=== PATIENT | female | born 1945 | race Caucasian/White ===

== ENCOUNTER 2020-05-17 07:34 | Day surgery (SDC) | payer MEDICARE, SELFPAY ==
[2020-05-12 10:01] VITALS: BMI 37.4
--- NOTE | 2020-05-13 07:55 | MHC.SHP ---
Pre-Procedural Eval Section A The patient is an INPATIENT: No The History & Physical has been completed within 30 days and I have reviewed it.: Yes Section B Chief Complaint: Cataract Right Eye Allergies: Allergies Allergy/AdvReac Type Severity Reaction Status Date / Time Sulfa (Sulfonamide Allergy Mild Rash Verified 05/12/20 10:11 Antibiotics) [Sulfa (Sulfonamides)] verapamil [From Verelan] Allergy Swelling Verified 05/12/20 10:11 VIJAY Inhibitors AdvReac Cough Verified 05/12/20 10:11 Plan Diagnosis/Plan: Unchanged Patient has been examined and remains a candidate for the planned procedure
--- NOTE | 2020-05-14 09:22 | P.CONAN_ITS ---
Documented by User: Latha James 05/14/20 09:22 HPI - Anesthesia Eval Consult details Narrative: 75yo F for cataract PCP cleared [facility] Past Medical History Medical History Asthma COPD (chronic obstructive pulmonary disease) GERD (gastroesophageal reflux disease) HTN (hypertension) Hx of thyroglossal duct cyst Surgical History Surgical History H/O colonoscopy Social History Social History Smoking Status: Former smoker Smoked in Last 30 Days: No Smoking Quit Date: age 35 Use of substances other than those prescribed or required for medical reasons: No Have you been hit, kicked, punched, or otherwise hurt by someone within the past year? If so, by whom?: No Advance Directives Information Provided: No Recently lost weight without trying: No Meds Allergies Allergy/AdvReac Type Severity Reaction Status Date / Time Sulfa (Sulfonamide Allergy Mild Rash Verified 05/12/20 10:11 Antibiotics) [Sulfa (Sulfonamides)] verapamil [From Verelan] Allergy Swelling Verified 05/12/20 10:11 VIJAY Inhibitors AdvReac Cough Verified 05/12/20 10:11 Home Medications Medication Instructions Recorded Confirmed Type albuterol sulfate [Ventolin HFA] 2 puff INHALATION Q4-6H PRN 05/12/20 05/12/20 History fluticasone propion-salmeterol 1 inh INHALATION BID 05/12/20 05/12/20 History [Advair Diskus] fluticasone propionate [Flonase] 1 spray INTRANASAL BID 05/12/20 05/12/20 History loratadine 10 mg PO DAILY 05/12/20 05/12/20 History valsartan-hydrochlorothiazide 1 tab PO DAILY 05/12/20 05/12/20 History Exam Exam Date and Time: May 14, 2020921 Height,Weight and Vital Signs: Height 5 ft 4 in Weight 98.883 kg Assessment and Plan Assessment Anesthesia Assessment: Chart Reviewed Documented by User: Dominguez Solomon 05/17/20 08:42 PMFSH Past Medical History Medical History Asthma COPD (chronic obstructive pulmonary disease) GERD (gastroesophageal reflux disease) HTN (hypertension) Hx of thyroglossal duct cyst Surgical History Surgical History H/O colonoscopy Social History Social History Smoking Status: Former smoker Smoked in Last 30 Days: No Smoking Quit Date: age 35 Use of substances other than those prescribed or required for medical reasons: No Have you been hit, kicked, punched, or otherwise hurt by someone within the past year? If so, by whom?: No Advance Directives Information Provided: No Recently lost weight without trying: No Meds Allergies Allergy/AdvReac Type Severity Reaction Status Date / Time Sulfa (Sulfonamide Allergy Mild Rash Verified 05/12/20 10:11 Antibiotics) [Sulfa (Sulfonamides)] verapamil [From Verelan] Allergy Swelling Verified 05/12/20 10:11 VIJAY Inhibitors AdvReac Cough Verified 05/12/20 10:11 Home Medications Medication Instructions Recorded Confirmed Type albuterol sulfate [Ventolin HFA] 2 puff INHALATION Q4-6H PRN 05/12/20 05/12/20 History fluticasone propion-salmeterol 1 inh INHALATION BID 05/12/20 05/12/20 History [Advair Diskus] fluticasone propionate [Flonase] 1 spray INTRANASAL BID 05/12/20 05/12/20 History loratadine 10 mg PO DAILY 05/12/20 05/12/20 History valsartan-hydrochlorothiazide 1 tab PO DAILY 05/12/20 05/12/20 History Exam Airway Mallampati Class: II TM Dist: >3cm Neck ROM: Full Loose/Missing/Broken Teeth: No Heart: [id number] Lungs: cta b/l Assessment and Plan Assessment Anesthesia Assessment: Anesthesia Plan Discussed, PAT Visit and Chart Reviewed Final Anesthetic Review NPO: Yes ASA Class: III Final Preanesthetic Review: No Changes in Pt Med Stat, Meds/Allgs Chart Reviewed, Consent Obtained/Reviewed and Anes Risks/Benef Reviewed Patient Risk: Low Procedure Risk: Low Assessment/Block/Sedation in SS: Assess/Block/Sedation-SS Anesthetic Plan Anesthetic Plan: MAC: Disposition: Standard PACU
[2020-05-17 08:47] VITALS: BP 141/75; PULSE 61; RESP 16; TEMP 36.7; O2SAT 98
[2020-05-17] MEDS: Tetracaine HCl/PF 0.5% Oph Sol 4 ML DROPS 1 DROP EYE-RIGHT (08:53)
[2020-05-17] MEDS: Lactated Ringers 500 ML 50 ML IV (08:57)
[2020-05-17] MEDS: Tropicamide 1 % Ophth Sol 3 ML BTL 1 DROP EYE-RIGHT ×3 (08:58→09:08)
--- NOTE | 2020-05-17 09:44 | HO.PNOPHT ---
Ophthalmology Procedure Procedure Ophthalmology Viscoelastic: Kelly Murillo Dual Pack Pro Ophthalmology Lenses: TECNIS [id number] (23) Procedure Notes: PREOPERATIVE DIAGNOSIS: Decreased visual acuity right eye secondary to cataract POSTOPERATIVE DIAGNOSIS: Same PROCEDURE: Right cataract extraction with intraocular lens insertion SURGEON: Tommy Shaikh M.D. ANESTHESIA: Topical/MAC ESTIMATED BLOOD LOSS: None COMPLICATIONS: None After obtaining informed consent, the patient was brought to the operating room suite and placed in the supine position. After adequate sedation per anesthesia, topical drops of Tetracaine were given to the right eye. The eye was then prepped and draped in the usual sterile fashion. The operating room microscope was then positioned over the operative eye and a lid speculum placed. A paracentesis was created. Viscoelastic was then instilled into the anterior chamber. A three plane incision was then created temporally, utilizing a 2.85 mm keratome. Capsulotomy forceps were then utilized to create a circular tear capsulotomy. Hydrodissection and hydrodelineation were carried out until adequate mobilization of the nucleus occurred. Phacoemulsification was then utilized to remove the dense central nucleus followed by removal of the cortical material utilizing the automated aspiration irrigation unit. Viscoelastic was instilled into the posterior capsular bag followed by placement of a posterior chamber intraocular lens without difficulty. The residual Viscoelastic was then removed utilizing the automated IA machine. The wound was checked and found to be watertight. The patient tolerated the procedure well and the lid speculum was removed. Intracameral injection of Vigamox 0.1 mL followed by a subtenon injection of Kenalog-40 0.2 mL were administered. The patient will be seen in the a.m.
== END 2020-05-17 11:00 | disposition home or self-care (01) ==
PROVIDERS: PCP Internal Medicine; Visit Provider Ophthalmology
PROC: (CPT 66985; principal; 2020-05-17 09:20)
DX: H25.11 Age-related nuclear cataract, right eye (principal); H52.4 Presbyopia; H40.213 Acute angle-closure glaucoma, bilateral; I10 Essential (primary) hypertension; J44.9 Chronic obstructive pulmonary disease, unspecified; J40 Bronchitis, not specified as acute or chronic; Z79.51 Long term (current) use of inhaled steroids; Z79.899 Other long term (current) drug therapy; Z87.891 Personal history of nicotine dependence
CPT/HCPCS: 66984; J2250; J3010; J3300; V2632

== ENCOUNTER 2020-05-31 07:46 | Day surgery (SDC) | payer MEDICARE, SELFPAY ==
--- NOTE | 2020-05-27 08:26 | MHC.SHP ---
Pre-Procedural Eval Section A The patient is an INPATIENT: No The History & Physical has been completed within 30 days and I have reviewed it.: Yes Section B Chief Complaint: Cataract Left eye Allergies: Allergies Allergy/AdvReac Type Severity Reaction Status Date / Time Sulfa (Sulfonamide Allergy Mild Rash Verified 05/12/20 10:11 Antibiotics) [Sulfa (Sulfonamides)] verapamil [From Verelan] Allergy Swelling Verified 05/12/20 10:11 VIJAY Inhibitors AdvReac Cough Verified 05/12/20 10:11 Plan Diagnosis/Plan: Unchanged Patient has been examined and remains a candidate for the planned procedure
--- NOTE | 2020-05-28 08:57 | HO.ANESPROP2 ---
Documented by User: Latha James 05/28/20 14:05 HPI - Anesthesia Eval Consult details Narrative: 75yo F for cataract PCP cleared 1st eye 05/17/20: Fent 25, Midaz 1 [facility] Past Medical History Medical History Asthma COPD (chronic obstructive pulmonary disease) GERD (gastroesophageal reflux disease) HTN (hypertension) Hx of thyroglossal duct cyst Surgical History Surgical History H/O colonoscopy Social History Social History Smoking Status: Former smoker Advance Directives: No Meds Allergies Allergy/AdvReac Type Severity Reaction Status Date / Time Sulfa (Sulfonamide Allergy Mild Rash Verified 05/12/20 10:11 Antibiotics) [Sulfa (Sulfonamides)] verapamil [From Verelan] Allergy Swelling Verified 05/12/20 10:11 VIJAY Inhibitors AdvReac Cough Verified 05/12/20 10:11 Home Medications Medication Instructions Recorded Confirmed Type albuterol sulfate [Ventolin HFA] 2 puff INHALATION Q4-6H PRN 05/12/20 05/12/20 History fluticasone propion-salmeterol 1 inh INHALATION BID 05/12/20 05/12/20 History [Advair Diskus] fluticasone propionate [Flonase] 1 spray INTRANASAL BID 05/12/20 05/12/20 History loratadine 10 mg PO DAILY 05/12/20 05/12/20 History valsartan-hydrochlorothiazide 1 tab PO DAILY 05/12/20 05/12/20 History Exam Exam Date and Time: May 28, 2020 0857 Assessment and Plan Assessment Anesthesia Assessment: Chart Reviewed Documented by User: Jyoti Sullivan 05/31/20 09:29 [facility] Past Medical History Medical History Asthma COPD (chronic obstructive pulmonary disease) GERD (gastroesophageal reflux disease) HTN (hypertension) Hx of thyroglossal duct cyst Surgical History Surgical History H/O colonoscopy Social History Social History Smoking Status: Former smoker Advance Directives: No Meds Allergies Allergy/AdvReac Type Severity Reaction Status Date / Time Sulfa (Sulfonamide Allergy Mild Rash Verified 05/12/20 10:11 Antibiotics) [Sulfa (Sulfonamides)] verapamil [From Verelan] Allergy Swelling Verified 05/12/20 10:11 VIJAY Inhibitors AdvReac Cough Verified 05/12/20 10:11 Home Medications Medication Instructions Recorded Confirmed Type albuterol sulfate [Ventolin HFA] 2 puff INHALATION Q4-6H PRN 05/12/20 05/12/20 History fluticasone propion-salmeterol 1 inh INHALATION BID 05/12/20 05/12/20 History [Advair Diskus] fluticasone propionate [Flonase] 1 spray INTRANASAL BID 05/12/20 05/12/20 History loratadine 10 mg PO DAILY 05/12/20 05/12/20 History valsartan-hydrochlorothiazide 1 tab PO DAILY 05/12/20 05/12/20 History Exam Airway Mallampati Class: I (Caps lateral) TM Dist: >3cm Neck ROM: Full Heart: RRR Lungs: CztABL Assessment and Plan Assessment Anesthesia Assessment: Anesthesia Plan Discussed Final Anesthetic Review NPO: Yes ASA Class: II Final Preanesthetic Review: No Changes in Pt Med Stat and Consent Obtained/Reviewed Patient Risk: Low Procedure Risk: Low Anesthetic Plan Anesthetic Plan: MAC: Disposition: Standard PACU
[2020-05-31 09:18] VITALS: BP 151/73; PULSE 70; RESP 16; TEMP 36.3; O2SAT 100; BMI 35.0
[2020-05-31] MEDS: Lactated Ringers 500 ML 50 ML IV (09:34)
[2020-05-31] MEDS: Tetracaine HCl/PF 0.5% Oph Sol 4 ML DROPS 1 DROP EYE-LEFT (09:34)
[2020-05-31] MEDS: Tropicamide 1 % Ophth Sol 3 ML BTL 1 DROP EYE-LEFT ×3 (09:36→09:41)
--- NOTE | 2020-05-31 10:16 | HO.PNOPHT ---
Ophthalmology Procedure Procedure Ophthalmology Viscoelastic: Kelly Philipt Dual Pack Pro Ophthalmology Lenses: TECNIS [id number] (23) Procedure Notes: PREOPERATIVE DIAGNOSIS: Decreased visual acuity left eye secondary to cataract POSTOPERATIVE DIAGNOSIS: Same PROCEDURE: Left cataract extraction with intraocular lens insertion SURGEON: Tommy Shaikh M.D. ANESTHESIA: Topical/MAC ESTIMATED BLOOD LOSS: None COMPLICATIONS: None After obtaining informed consent, the patient was brought to the operation room suite and placed in the supine position. After adequate sedation per anesthesia, topical drops of Tetracaine were given to the left eye. The eye was then prepped and draped in the usual sterile fashion. The operating room microscope was then positioned over the operative eye and a lid speculum placed. A paracentesis was created. Viscoelastic was then instilled into the anterior chamber. A three plane incision was then created temporally, utilizing a 2.85 mm keratome. Capsulotomy forceps were then utilized to create a circular tear capsulotomy. Hydrodissection and hydrodelineation were carried out until adequate mobilization of the nucleus occurred. Phacoemulsification was then utilized to remove the dense central nucleus followed by removal of the cortical material utilizing the automated aspiration irrigation unit. Viscoat elastic was instilled into the posterior capsular bag followed by placement of a posterior chamber intraocular lens without difficulty. The residual Viscoat elastic was then removed utilizing the automated IA machine. The wound was check and found to be watertight. The patient tolerated the procedure well and the lid speculum was removed. Intracameral injection of Vigamox 0.1 mL followed by a subtenon injection of Kenalog-40 0.2 mL were administered. The patient will be seen in the a.m.
[2020-05-31 10:21] VITALS: BP 142/59; PULSE 50; RESP 16; TEMP 36.2; O2SAT 100
== END 2020-05-31 11:00 | disposition home or self-care (01) ==
PROVIDERS: PCP Internal Medicine; Visit Provider Ophthalmology
PROC: (CPT 66985; principal; 2020-05-31 10:10)
DX: H25.12 Age-related nuclear cataract, left eye (principal); H54.7 Unspecified visual loss; I10 Essential (primary) hypertension; J44.9 Chronic obstructive pulmonary disease, unspecified; Z79.51 Long term (current) use of inhaled steroids; Z79.899 Other long term (current) drug therapy; Z88.2 Allergy status to sulfonamides; Z88.8 Allergy status to other drugs, medicaments and biological substances; Z87.891 Personal history of nicotine dependence
CPT/HCPCS: 66984; J2250; J3010; J3300; V2632

== ENCOUNTER 2020-07-02 09:48 | Outpatient (REF) | payer MEDICARE, SELFPAY ==
[2020-07-02 14:42] LABS: Alanine Aminotransferase 14 U/L (0-31); Albumin Level 3.8 g/dL (3.5-5.0); Alkaline Phosphatase 70 U/L (39-117); Anion Gap 13 (12-20); Aspartate Amino Transferase 15 U/L (5-31); Bilirubin Total 0.7 mg/dL (0.0-1.0); Blood Urea Nitrogen 18 mg/dL (9-16); Calcium 9.2 mg/dL (8.4-10.2); Carbon Dioxide 30 mmol/L (22-29); Chloride 102 mmol/L (96-108); Cholesterol 220 mg/dL; Estimated Glomerular Filt Rate > 60; Glucose Fasting 88 mg/dL (60-99); HDL Cholesterol 96 mg/dL; LDL Cholesterol Calculated 112 mg/dl; Sodium 141 mmol/L (135-145); Total Protein 6.5 g/dL (6.5-8.0); Triglycerides 61 mg/dL
[2020-07-02 14:45] LABS: Thyroid Stimulating Hormone 1.43 uIU/mL (0.32-4.0)
== END 2020-07-02 09:49 | disposition home or self-care (01) ==
LOC: HO.10HDL 09:48
PROVIDERS: Visit Provider Internal Medicine
DX: H26.8 Other specified cataract (principal); I10 Essential (primary) hypertension; J44.1 Chronic obstructive pulmonary disease with (acute) exacerbation
CPT/HCPCS: 80053; 80061; 84443

== ENCOUNTER 2020-09-27 11:57 | Outpatient (REF) | payer MEDICARE, SELFPAY ==
--- NOTE | ~2020-09-27 | MM_ITS ---
EXAMINATION: MM SCREENING DIGITAL BREAST TOMOSYNTHESIS, BILATERAL CLINICAL INFORMATION: Screening. Asymptomatic. The lifetime risk of breast cancer based on the Tyrer-Cuzick Model is 4%. COMPARISON: Mammography: 09/22/2019, 08/08/2018, 11/23/2016 TECHNIQUE: Digital breast tomosynthesis is performed in both the craniocaudal and mediolateral oblique views along with computer-aided detection (CAD). Synthesized 2D images are generated from the tomosynthesis. FINDINGS: There are scattered areas of fibroglandular density (ACR BI-RADS breast composition Category b). There are no significant masses, abnormal calcifications, or other abnormalities. Parenchymal pattern is similar to prior studies. The axilla and skin contours are unremarkable. MM/MM tomosynthesis screening BI IMPRESSION: No mammographic evidence of malignancy. ASSESSMENT: BI-RADS 1: Negative RECOMMENDATION: Routine annual mammography screening. This patient's information was entered into a reminder system with a target due date for their next mammogram.
== END 2020-09-27 11:58 | disposition home or self-care (01) ==
LOC: HO.MAMMO 11:57
PROVIDERS: PCP Internal Medicine; Visit Provider Internal Medicine
DX: Z12.31 Encounter for screening mammogram for malignant neoplasm of breast (principal)
CPT/HCPCS: 77063; 77067

== ENCOUNTER 2020-10-22 09:24 | Day surgery (SDC) | payer MEDICARE, SELFPAY ==
[2020-10-15 15:03] VITALS: BMI 37.8
--- NOTE | 2020-10-21 07:54 | HO.ANESPROP2 ---
Documented by User: Latha James 10/21/20 07:55 HPI - Anesthesia Eval Consult details Narrative: 75yo F for Colonoscopy PMFSH Past Medical History Medical History Asthma COPD (chronic obstructive pulmonary disease) COVID-19 vaccine administered GERD (gastroesophageal reflux disease) HTN (hypertension) Hx of thyroglossal duct cyst Surgical History Surgical History H/O colonoscopy Hx of cataract extraction Social History Social History Are you a primary career services assistant to a significant other at home: No Do you presently have visiting nurse or other home services: No Smoking Status: Former smoker Smoking Quit Date: age 35 Use of substances other than those prescribed or required for medical reasons: No Have you been hit, kicked, punched, or otherwise hurt by someone within the past year? If so, by whom?: No Advance Directives Information Provided: No Recently lost weight without trying: No Meds Allergies Allergy/AdvReac Type Severity Reaction Status Date / Time Sulfa (Sulfonamide Allergy Intermediate Rash Verified 10/15/20 14:51 Antibiotics) [Sulfa (Sulfonamides)] verapamil [From Verelan] Allergy Intermediate Swelling Verified 10/15/20 14:51 VIJAY Inhibitors AdvReac Intermediate Cough Verified 10/15/20 14:51 Home Medications Medication Instructions Recorded Confirmed Last Taken Type albuterol sulfate [Ventolin HFA] 2 puff INHALATION Q4-6H PRN 05/12/20 10/15/20 Unknown History fluticasone propion-salmeterol 1 inh INHALATION BID 05/12/20 10/15/20 10/22/20 History [Advair Diskus] fluticasone propionate [Flonase] 1 spray INTRANASAL BID 05/12/20 10/15/20 Unknown History loratadine 10 mg PO DAILY 05/12/20 10/15/20 Unknown History valsartan-hydrochlorothiazide 1 tab PO DAILY 05/12/20 10/15/20 10/22/20 History montelukast 1 tab PO BEDTIME 10/15/20 10/15/20 10/22/20 History omeprazole 1 cap PO DAILY 10/15/20 10/15/20 10/22/20 History Exam Exam Date and Time: October 21, 2020 0754 Height,Weight and Vital Signs: Height 5 ft 4 in Weight 99.79 kg Assessment and Plan Assessment Anesthesia Assessment: Chart Reviewed Documented by User: Rhianna Sams 10/22/20 10:41 PMFSH Past Medical History Medical History Asthma COPD (chronic obstructive pulmonary disease) COVID-19 vaccine administered GERD (gastroesophageal reflux disease) HTN (hypertension) Hx of thyroglossal duct cyst Family History Family history of problems with anesthesia: No Surgical History Surgical History H/O colonoscopy Hx of cataract extraction History of Problems with Anesthesia: No Social History Social History Are you a primary career services assistant to a significant other at home: No Do you presently have visiting nurse or other home services: No Smoking Status: Former smoker Smoking Quit Date: age 35 Use of substances other than those prescribed or required for medical reasons: No Have you been hit, kicked, punched, or otherwise hurt by someone within the past year? If so, by whom?: No Advance Directives Information Provided: No Recently lost weight without trying: No Meds Allergies Allergy/AdvReac Type Severity Reaction Status Date / Time Sulfa (Sulfonamide Allergy Intermediate Rash Verified 10/15/20 14:51 Antibiotics) [Sulfa (Sulfonamides)] verapamil [From Verelan] Allergy Intermediate Swelling Verified 10/15/20 14:51 VIJAY Inhibitors AdvReac Intermediate Cough Verified 10/15/20 14:51 Home Medications Medication Instructions Recorded Confirmed Last Taken Type albuterol sulfate [Ventolin HFA] 2 puff INHALATION Q4-6H PRN 05/12/20 10/15/20 Unknown History fluticasone propion-salmeterol 1 inh INHALATION BID 05/12/20 10/15/2021 History [Advair Diskus] fluticasone propionate [Flonase] 1 spray INTRANASAL BID 05/12/20 10/15/20 Unknown History loratadine 10 mg PO DAILY 05/12/20 10/15/20 Unknown History valsartan-hydrochlorothiazide 1 tab PO DAILY 05/12/20 10/15/20 10/22/20 History montelukast 1 tab PO BEDTIME 10/15/20 10/15/20 10/22/20 History omeprazole 1 cap PO DAILY 10/15/20 10/15/20 10/22/20 History Exam Height,Weight and Vital Signs: Vital Signs Temp Resp BP Pulse Ox 10/22/20 10:05 98.1 F 20 167/70 H 97 Pertinent Lab Results Pertinent Lab Results: Airway Mallampati Class: II TM Dist: >3cm Neck ROM: Full Heart: RRR Lungs: CTAB Assessment and Plan Assessment Anesthesia Assessment: Anesthesia Plan Discussed and Chart Reviewed Final Anesthetic Review NPO: Yes ASA Class: II Final Preanesthetic Review: No Changes in Pt Med Stat, Meds/Allgs Chart Reviewed, Consent Obtained/Reviewed and Anes Risks/Benef Reviewed Patient Risk: Low Procedure Risk: Low Assessment/Block/Sedation in SS: Assess/Block/Sedation-SS Anesthetic Plan Anesthetic Plan: MAC: Disposition: Standard PACU
[2020-10-22 10:05] VITALS: BP 167/70; RESP 20; TEMP 36.7; O2SAT 97
[2020-10-22] MEDS: Lactated Ringers 1,000 ML 100 ML IVCONT (10:30)
[2020-10-22 11:15] VITALS: BP 116/84; PULSE 66; RESP 20; TEMP 36.9; O2SAT 100
--- NOTE | 2020-10-22 11:20 | PM.OP ---
Brief Operative Note Date of Service: 10/22/20 Pre-op diagnosis: Screening Post-op diagnosis: other (Diverticulosis, Internal hemorrhoids) Procedure: Colonoscopy to the cecum and TI Surgeon: Richar Hanson Anesthesia: MAC Estimated blood loss (mL): 0 Pathology: none sent Condition: stable Disposition: PACU
[2020-10-22 11:30] VITALS: BP 162/58; PULSE 57; RESP 20; TEMP 37; O2SAT 98
--- NOTE | 2020-10-22 11:57 | OP_ITS ---
SURGEON: Richar Hanson MD INDICATIONS: The patient presents for evaluation of colorectal cancer screening. Full consent has been obtained from her for this, including risks of bleeding and perforation. PREOPERATIVE DIAGNOSIS: Colorectal cancer screening. POSTOPERATIVE DIAGNOSIS: PROCEDURE PERFORMED: Colonoscopy to cecum and terminal ileum. ESTIMATED BLOOD LOSS: COMPLICATIONS: ANESTHESIA: Monitored anesthesia care. ASSISTANTS: SPECIMENS: POSTOPERATIVE DIAGNOSES: Colorectal cancer screening, sigmoid diverticulosis, and small internal hemorrhoids. DESCRIPTION OF PROCEDURE: The patient was placed in the left lateral decubitus position. The digital rectal exam revealed no abnormalities. The Olympus video pediatric colonoscope was entered into the rectum and advanced easily to the cecum. Once in the cecum, I did identify normal-appearing cecal pouch with appendiceal orifice and a normal-appearing ileocecal valve. The terminal ileum was cannulated and appeared normal. Scope was withdrawn back in the colon. The entire cecum and ileocecal valve appeared normal. The scope was slowly withdrawn assessing all mucosal surfaces carefully. Preparation was excellent. I did not visualize any sign of polyps, colitis, nor angiodysplasia. There was a mild amount of sigmoid diverticulosis. In the rectum, scope was retroflexed visualizing small internal hemorrhoids, but no other pathology. The rectal mucosa appeared normal. The scope was straightened out and withdrawn from the patient. She tolerated the procedure well and was returned to the recovery area in stable condition. IMPRESSION: 1. Mild sigmoid diverticulosis. 2. Small internal hemorrhoids. PLAN: Given the patient's negative exam, no family history of first-degree relatives with colon cancer, and her age, I do not think she will need any further colonoscopies for screening in the future. She will otherwise see me on a p.r.n. basis. MD MARVIN Santoro/MALIK / [phone]
== END 2020-10-22 12:17 | disposition home or self-care (01) ==
PROVIDERS: PCP Internal Medicine; Visit Provider Internal Medicine
PROC: 0DJD8ZZ Inspection of Lower Intestinal Tract, Via Natural or Artificial Opening Endoscopic (ICD-10-PCS; CPT 45378; principal; 2020-10-22 10:40)
DX: Z12.11 Encounter for screening for malignant neoplasm of colon (principal); K57.30 Diverticulosis of large intestine without perforation or abscess without bleeding; K64.8 Other hemorrhoids; K21.9 Gastro-esophageal reflux disease without esophagitis; J44.9 Chronic obstructive pulmonary disease, unspecified; I10 Essential (primary) hypertension; Z87.891 Personal history of nicotine dependence; Z79.51 Long term (current) use of inhaled steroids; Z79.899 Other long term (current) drug therapy; Z88.2 Allergy status to sulfonamides; Z88.8 Allergy status to other drugs, medicaments and biological substances
CPT/HCPCS: G0121

== ENCOUNTER 2020-12-31 09:09 | Outpatient (REF) | payer MEDICARE, SELFPAY ==
[2020-12-31 10:34] LABS: Alanine Aminotransferase 13 U/L (0-31); Albumin Level 3.6 g/dL (3.5-5.0); Alkaline Phosphatase 80 U/L (39-117); Anion Gap 9 (12-20); Aspartate Amino Transferase 15 U/L (5-31); Bilirubin Total 0.5 mg/dL (0.0-1.0); Blood Urea Nitrogen 18 mg/dL (9-16); Calcium 8.5 mg/dL (8.4-10.2); Carbon Dioxide 32 mmol/L (22-29); Chloride 106 mmol/L (96-108); Estimated Glomerular Filt Rate > 60; Glucose Fasting 94 mg/dL (60-99); Potassium 3.8 mmol/L (3.3-5.1); Sodium 143 mmol/L (135-145)
== END 2020-12-31 09:10 | disposition home or self-care (01) ==
LOC: HO.10HDL 09:09
PROVIDERS: Visit Provider Internal Medicine
DX: Z13.31 Encounter for screening for depression (principal); I10 Essential (primary) hypertension; J44.1 Chronic obstructive pulmonary disease with (acute) exacerbation; K21.9 Gastro-esophageal reflux disease without esophagitis
CPT/HCPCS: 36415; 80053

== ENCOUNTER 2021-05-02 10:23 | Outpatient (REF) | payer MEDICARE, SELFPAY ==
[2021-05-02 10:45] LABS: MANUAL DIFF FLAG NO
[2021-05-02 11:08] LABS: Basophils Absolute Auto 0.1 X10*3/uL (0.0-0.2); Basophils Percent Auto 0.9 % (0-2); Eosinophils Absolute Auto 0.3 X10*3/uL (0.0-0.4); Hematocrit 41.1 % (37-47); Hemoglobin 13.1 g/dl (12.0-16.0); Imm Gran Abs Auto 0.03 X10*3/uL (0.00-0.03); Imm Gran Pct Auto 0.4 % (0.0-0.4); Lymphocytes Absolute Auto 2.7 X10*3/uL (1.2-4.9); Lymphocytes Percent Auto 40.2 % (20-40); Mean Corpuscular HGB Conc 31.9 g/dl (31.0-35.0); Mean Corpuscular Hemoglobin 27.9 pg (27.0-33.0); Mean Corpuscular Volume 87.4 fL (80-98); Mean Platelet Volume 10.3 fL (9.4-12.3); Monocytes Absolute Auto 0.6 X10*3/uL (0.1-1.2); Monocytes Percent Auto 8.6 % (2-11); Neutrophils Absolute Auto 3.1 X10*3/uL (2.0-8.3); Neutrophils Percent Auto 45.9 % (45-73); Platelet Count 296 X10*3/uL (160-400); Red Cell Distribution Width 13.1 % (11.0-16.0); White Blood Count 6.8 X10*3/uL (4.8-10.8)
[2021-05-02 11:43] LABS: Alanine Aminotransferase 34 U/L (0-31); Albumin Level 3.8 g/dL (3.5-5.0); Alkaline Phosphatase 86 U/L (39-117); Anion Gap 9 (12-20); Aspartate Amino Transferase 22 U/L (5-31); Bilirubin Total 0.6 mg/dL (0.0-1.0); Blood Urea Nitrogen 18 mg/dL (9-16); Calcium 9.4 mg/dL (8.4-10.2); Carbon Dioxide 31 mmol/L (22-29); Chloride 108 mmol/L (96-108); Cholesterol 200 mg/dL; Estimated Glomerular Filt Rate 54; Glucose Random 95 mg/dL (60-115); HDL Cholesterol 64 mg/dL; LDL Cholesterol Calculated 114 mg/dl; Potassium 4.3 mmol/L (3.3-5.1); Sodium 144 mmol/L (135-145); Total Protein 6.3 g/dL (6.5-8.0); Triglycerides 112 mg/dL
[2021-05-02 12:02] LABS: Thyroid Stimulating Hormone 2.38 uIU/mL (0.32-4.0)
== END 2021-05-02 10:24 | disposition home or self-care (01) ==
LOC: HO.LAB 10:23
PROVIDERS: PCP Internal Medicine; Visit Provider Internal Medicine
DX: I10 Essential (primary) hypertension (principal); J30.89 Other allergic rhinitis; J44.1 Chronic obstructive pulmonary disease with (acute) exacerbation; R53.83 Other fatigue
CPT/HCPCS: 36415; 80053; 80061; 84443; 85025

== ENCOUNTER 2021-06-08 15:17 | Outpatient (REF) | payer MEDICARE, SELFPAY ==
[2021-06-08 16:00] LABS: COVID-19 Test Negative (Negative)
== END 2021-06-08 15:18 | disposition home or self-care (01) ==
LOC: HO.LAB 15:17
PROVIDERS: PCP Internal Medicine; Visit Provider Internal Medicine
DX: Z20.822 Contact with and (suspected) exposure to COVID-19 (principal)
CPT/HCPCS: 36415; 87635; C9803

== ENCOUNTER 2021-10-27 15:36 | Emergency (ER) | payer MEDICARE, SELFPAY ==
--- NOTE | ~2021-10-27 | XR_ITS ---
EXAMINATION: XR RIBS, RIGHT CLINICAL INFORMATION: Fall, pain. COMPARISON: Chest radiograph dated from 12/18/2016. TECHNIQUE: 3 views of the right ribs were obtained. FINDINGS: Normal appearance of the cardiomediastinal silhouette. No focal consolidation, pleural fusion or pneumothorax. Subtle platelike/linear opacity in the right midlung, at the level of the minor fissure, could represent a small amount of intrafissural fluid. No evidence of acutely displaced rib fractures. XR/XR ribs RT min 3V w CXR1V IMPRESSION: No acute cardiopulmonary findings. No evidence of displaced rib fractures.
--- NOTE | ~2021-10-27 | CT_ITS ---
EXAMINATION: CT HEAD WITHOUT CONTRAST CT CERVICAL SPINE WITHOUT CONTRAST CLINICAL INFORMATION: Hit head COMPARISON: None. TECHNIQUE: Imaging was performed from the skull base to vertex without intravenous administration of contrast. In addition, helical noncontrast CT imaging was acquired through the cervical spine and source images were reviewed along with axial reconstructions and sagittal and coronal MPRs. [This CT examination was performed using dose optimization techniques as appropriate, variously including the following: *Automated exposure control *Adjustment of mA and/or kV according to patient size (this includes techniques or standardized protocols for targeted exams where dose is matched to indication/reason for exam; i.e. extremities or head) *Use of iterative reconstruction technique] DLP: 1042 mGy-cm FINDINGS: HEAD: No intracranial mass, hemorrhage, or midline shift is visualized. There is generalized global volume loss. There is mild prominence of the ventricles and the sulci . There is mild hypodensity of the periventricular white matter due to chronic small vessel ischemic disease. There are vascular calcifications of the internal carotid arteries bilaterally. . No extra-axial collections are identified. The paranasal sinuses and mastoid air cells are well aerated. CERVICAL SPINE: There is no evidence of acute cervical spine fracture. Vertebral bodies remain normal in height. Cervical vertebrae have normal alignment. There is multilevel degenerative spondylosis of the cervical spine with disc height narrowing and endplate spurs and facet joint arthrosis No pre- or paravertebral soft tissue abnormality is identified. Limited assessment of the lung apices is unremarkable. CT/CT cervical spine wo con IMPRESSION: 1. No acute intracranial pathology. 2. No CT evidence of acute cervical spine fracture or traumatic subluxation
[2021-10-27 15:50] VITALS: BP 180/66; PULSE 64; RESP 18; TEMP 36.3; O2SAT 98; BMI 38.6
[2021-10-27 17:54] VITALS: BP 90/71; PULSE 58; RESP 16; TEMP 36.5; O2SAT 97
--- NOTE | 2021-10-27 18:18 | ED_ITS ---
HPI - Fall General Chief Complaint: Fall Stated Complaint: fell and hit her head Time Seen by Provider: 10/27/21 17:59 Source: patient and family Mode of arrival: ambulatory Limitations: no limitations History of Present Illness HPI Narrative: 76 yo female with history of asthma, GERD, HTN here with complaints of fall. Patient tells me she tripped while walking falling forward hitting her face and head. She also struck her right chest wall. She denies any loss of consciousness. She denies any shortness of breath, headache, vision changes, vomiting, dizziness, neck pain. Patient is not on any anticoagulation or aspirin. Related Data Home Medications Medication Instructions Recorded Confirmed albuterol sulfate 90 mcg/actuation 2 puff INHALATION Q4-6H PRN 05/12/20 10/15/20 aerosol inhaler (Ventolin HFA) fluticasone 250 mcg-salmeterol 50 1 inh INHALATION BID 05/12/20 10/15/20 mcg/dose blistr powdr for inhalation (Advair Diskus) fluticasone propionate 50 1 spray INTRANASAL BID 05/12/20 10/15/20 mcg/actuation nasal spray,suspension loratadine 10 mg tablet 10 mg PO DAILY 05/12/20 10/15/20 valsartan 320 1 tab PO DAILY 05/12/20 10/15/20 mg-hydrochlorothiazide 25 mg tablet montelukast 10 mg tablet 1 tab PO BEDTIME 10/15/20 10/15/20 omeprazole 20 mg capsule,delayed 1 cap PO DAILY 10/15/20 10/15/20 release Allergies Allergy/AdvReac Type Severity Reaction Status Date / Time Sulfa (Sulfonamide Allergy Intermediate Rash Verified 10/15/20 14:51 Antibiotics) [Sulfa (Sulfonamides)] verapamil [From Verelan] Allergy Intermediate Swelling Verified 10/15/20 14:51 VIJAY Inhibitors AdvReac Intermediate Cough Verified 10/15/20 14:51 Review of Systems Review of Systems: Yes all other systems are reviewed and are negative Constitutional: Constitutional: Reports no additional constitutional complaints, Denies body ache(s), Denies chills, Denies fever(s), Denies headache(s) and Denies weakness Eyes: Eyes: Reports no additional eye complaints and Denies change in vision ENT: Reports system reviewed and no additional complaints, except as documented, Denies dizziness, Denies headache(s), Denies nasal congestion, Denies nasal discharge and Denies neck pain Cardiovascular: Cardiovascular: Reports no additional cardiovascular complaints, Reports chest pain, Denies leg edema and Denies dyspnea Respiratory: Respiratory: Reports no additional respiratory complaints, Denies cough and Denies dyspnea Gastrointestinal: Gastrointestinal: Reports no additional gastrointestinal c omplaints, Denies abdominal pain, Denies diarrhea, Denies nausea and Denies vomiting Genitourinary: Genitourinary: Reports no additional female genitourinary complaints and Denies urinary incontinence Musculoskeletal: Musculoskeletal: Reports no additional musculoskeletal complaints, Denies back pain, Denies arthralgias, Denies joint swelling, Denies neck pain, Denies numbness and Denies tingling Integumentary/Breasts: Skin/Breast: Reports system reviewed and no additional complaints, except as docu and Denies rash Neurologic: Reports system reviewed and no additional complaints, except as documented, Denies Abnormal speech present, Denies dizziness, Denies headache(s), Denies numbness, Denies tingling and Denies weakness PMFSH Past Medical History Attestation statement: The following information was validated with the patient. Source: old records reviewed and nursing notes reviewed Medical History Asthma COPD (chronic obstructive pulmonary disease) COVID-19 vaccine administered GERD (gastroesophageal reflux disease) HTN (hypertension) Hx of thyroglossal duct cyst Surgical History H/O colonoscopy Hx of cataract extraction Social History Social History Are you a primary rental boats caretaker to a significant other at home: No Do you presently have visiting nurse or other home services: No Advance Directives: No Advance Directives Information Provided: No Physical Exam Vital Signs: Vital Signs: Last Vital Signs Temp 97.7 F 10/27/21 17:54 Pulse 58 10/27/21 17:54 Resp 16 10/27/21 17:54 BP 90/71 10/27/21 17:54 Pulse Ox 97 10/27/21 17:54 BMI result Body Mass Index 38.6 Const: General: cooperative, healthy appearing, comfortable and no acute distress Orientation/consciousness: patient oriented x3 Limitations: no limitations HEENT: Head: Yes normal to inspection, No Nolan's sign and No raccoon eyes Ears: hearing grossly normal bilaterally and TM's normal bilaterally General nose exam: Normal external nose present Face and sinus: Yes normal facial exam Mouth: Normal oral and palatal mucosa present Throat: Yes posterior oropharynx normal Eyes: General: appearance normal, both eyes and all related structures Pupils: Equal, round and reactive pupils present Neck: Neck: Yes normal visual inspection, Yes full ROM, Yes no lymphadenopathy and Yes no meningeal signs Chest: Chest palpation & inspection: tenderness (There is tenderness to the right lateral chest wall with no ecchymosis or c) Resp: Effort & Inspection: normal respiratory effort Auscultation: clear to auscultation bilaterally Cardio: Rate: regular rate Rhythm: regular rhythm Peripheral pulses: Peripheral pulses 2+ throughout GI: Inspection: Yes normal to inspection Palpation (GI): Soft to palpation and nontender Auscultation: normal bowel sounds Back/Spine/Pelvis: Thoracic/Lumbar Spine: thoracic and lumbar spine normal to inspection Skin: General skin exam: no rashes or lesions noted Neuro: General: patient oriented x3, no meningeal signs, no focal motor deficits and normal sensation to monofilament Cranial nerves: Yes CN's II-XII intact bilaterally, Yes Equal, round and reactive pupils present, Yes Bilaterally intact EOM present, Yes Nystagmus not present, Yes Normal facial strength present and Yes Midline tongue present Cognition (Neuro): normal cognition Speech: No Abnormal speech present Gait exam (Neuro): Normal gait present Motor exam (neuro): 5/5 motor strength present throughout Sensory Exam: Normal double simultaneous stimulation for sensation Extrem: General: Yes normal to inspection, Yes no pedal edema and Yes no calf tenderness Course Course Course Narrative: 76-year-old female here after mechanical fall with complaints of right-sided chest wall pain. Patient also had a head strike with no loss of consciousness. She does have some abrasions over her nasal bridge with a normal neurological exam. Patient will need tetanus updated. Will check chest x-ray, CT head due to age. 1899-chest x-ray negative. CT head and neck show no acute finding. Likely contusion. Reviewed worrisome signs and symptoms when to return to the emergency department. Comfortable discharge home. MDM - Fall Medical Records Attestation: I reviewed the patient's medical records. Lab Data Attestation: I reviewed the patient's lab results. Imaging Data Ct head/cervical spine: Attestation: I personally reviewed and interpreted this imaging study as follows: Radiologist's impression: HEAD: No intracranial mass, hemorrhage, or midline shift is visualized. There is generalized global volume loss. There is mild prominence of the ventricles and the sulci . There is mild hypodensity of the periventricular white matter due to chronic small vessel ischemic disease. There are vascular calcifications of the internal carotid arteries bilaterally. . No extra-axial collections are identified. The paranasal sinuses and mastoid air cells are well aerated. CERVICAL SPINE: There is no evidence of acute cervical spine fracture. Vertebral bodies remain normal in height. Cervical vertebrae have normal alignment. There is multilevel degenerative spondylosis of the cervical spine with disc height narrowing and endplate spurs and facet joint arthrosis No pre- or paravertebral soft tissue abnormality is identified. Limited assessment of the lung apices is unremarkable. CT/CT head/brain wo con IMPRESSION: 1. No acute intracranial pathology. 2. No CT evidence of acute cervical spine fracture or traumatic subluxation ? ribs/chest xray: Attestation: I personally reviewed and interpreted this imaging study as follows: Radiologist's impression: FINDINGS: Normal appearance of the cardiomediastinal silhouette. No focal consolidation, pleural fusion or pneumothorax. Subtle platelike/linear opacity in the right midlung, at the level of the minor fissure, could represent a small amount of intrafissural fluid. No evidence of acutely displaced rib fractures. XR/XR ribs RT min 3V w CXR1V IMPRESSION: No acute cardiopulmonary findings. No evidence of displaced rib fractures. ? Discharge Plan Discharge Clinical Impression: Chest wall contusion Patient Disposition: Home, Self-Care Instructions: Contusion in Adults (ED) Additional Instructions: This CT scan of your brain looks normal Your x-ray shows no fracture Take Tylenol for pain as needed Prescriptions: No Action omeprazole 20 mg capsule,delayed release(DR/EC) 1 cap PO DAILY 0RF montelukast 10 mg tablet 1 tab PO BEDTIME 0RF fluticasone propion-salmeterol [Advair Diskus] 250-50 mcg/dose Blister With Device 1 inh INHALATION BID 0RF albuterol sulfate [Ventolin HFA] 90 mcg/actuation Hfa Aerosol Inhaler 2 puff INHALATION Q4-6H PRN (Reason: Shortness Of Breath) 0RF fluticasone propionate [Flonase] 50 mcg/actuation Clifford,Suspension 1 spray INTRANASAL BID 0RF loratadine 10 mg Tablet 10 mg PO DAILY 0RF valsartan-hydrochlorothiazide 320-25 mg Tablet 1 tab PO DAILY 0RF Referrals: Caren Martinez MD [Primary Care Provider] - 5 days (as needed) Interventions: ED Discharge Assessment Last Done: 10/27/21 19:21 Discharge Date/Time: 10/27/21 19:23
[2021-10-27] MEDS: Diphth,Pertus(ACell),Tet Adult 0.5 ML SYRINGE IM (18:53)
== END 2021-10-27 19:23 | disposition home or self-care (01) ==
PROVIDERS: Emergency Provider Internal Medicine; PCP Internal Medicine
DX: S00.31XA Abrasion of nose, initial encounter (principal); S20.211A Contusion of right front wall of thorax, initial encounter; W19.XXXA Unspecified fall, initial encounter; Y93.89 Activity, other specified; Y92.810 Car as the place of occurrence of the external cause; Y99.9 Unspecified external cause status
CPT/HCPCS: 70450; 71101; 72125; 90471; 90715; 99284

== ENCOUNTER 2021-12-02 09:19 | Outpatient (REF) | payer MEDICARE, SELFPAY ==
[2021-12-02 09:42] LABS: MANUAL DIFF FLAG NO
[2021-12-02 10:16] LABS: Basophils Absolute Auto 0.1 X10*3/uL (0.0-0.2); Eosinophils Absolute Auto 0.2 X10*3/uL (0.0-0.4); Hemoglobin 12.9 g/dl (12.0-16.0); Imm Gran Abs Auto 0.03 X10*3/uL (0.00-0.03); Imm Gran Pct Auto 0.4 % (0.0-0.4); Lymphocytes Absolute Auto 2.5 X10*3/uL (1.2-4.9); Lymphocytes Percent Auto 37.2 % (20-40); Mean Corpuscular HGB Conc 31.5 g/dl (31.0-35.0); Mean Corpuscular Hemoglobin 27.4 pg (27.0-33.0); Mean Platelet Volume 10.3 fL (9.4-12.3); Monocytes Absolute Auto 0.6 X10*3/uL (0.1-1.2); Monocytes Percent Auto 9.1 % (2-11); Neutrophils Absolute Auto 3.3 x10*3/uL (2.0-8.3); Neutrophils Percent Auto 49.3 % (45-73); Platelet Count 303 X10*3/uL (160-400); Red Blood Count 4.71 X10*6/uL (4.20-5.50); Red Cell Distribution Width 13.1 % (11.0-16.0); White Blood Count 6.7 X10*3/uL (4.8-10.8)
[2021-12-02 10:45] LABS: Alanine Aminotransferase 28 U/L (0-31); Albumin Level 3.8 g/dL (3.5-5.0); Alkaline Phosphatase 118 U/L (39-117); Anion Gap 12 (12-20); Aspartate Amino Transferase 21 U/L (5-31); Bilirubin Total 0.5 mg/dL (0.0-1.0); Blood Urea Nitrogen 20 mg/dL (9-16); Calcium 9.9 mg/dL (8.4-10.2); Carbon Dioxide 28 mmol/L (22-29); Chloride 104 mmol/L (96-108); Cholesterol 216 mg/dL; Estimated Glomerular Filt Rate 53; Glucose Random 104 mg/dL (60-115); HDL Cholesterol 78 mg/dL; LDL Cholesterol Calculated 126 mg/dl; Potassium 4.3 mmol/L (3.3-5.1); Sodium 140 mmol/L (135-145); Total Protein 6.8 g/dL (6.5-8.0); Triglycerides 64 mg/dL
[2021-12-02 11:09] LABS: Thyroid Stimulating Hormone 1.79 uIU/mL (0.32-4.0)
== END 2021-12-02 09:20 | disposition home or self-care (01) ==
LOC: HO.LAB 09:19
PROVIDERS: PCP Internal Medicine; Visit Provider Internal Medicine
DX: I10 Essential (primary) hypertension (principal); J44.1 Chronic obstructive pulmonary disease with (acute) exacerbation; R21 Rash and other nonspecific skin eruption
CPT/HCPCS: 36415; 80053; 80061; 84443; 85025

== ENCOUNTER 2022-03-07 08:46 | Outpatient (REF) | payer MEDICARE, SELFPAY ==
[2022-03-07 10:51] LABS: Alanine Aminotransferase 13 U/L (0-31); Albumin Level 3.9 g/dL (3.5-5.0); Alkaline Phosphatase 87 U/L (39-117); Anion Gap 14 (12-20); Aspartate Amino Transferase 16 U/L (5-31); Bilirubin Total 0.6 mg/dL (0.0-1.0); Blood Urea Nitrogen 24 mg/dL (9-16); Carbon Dioxide 28 mmol/L (22-29); Chloride 104 mmol/L (96-108); Cholesterol 177 mg/dL; Estimated Glomerular Filt Rate 53; Glucose Fasting 96 mg/dL (60-99); HDL Cholesterol 86 mg/dL; LDL Cholesterol Calculated 79 mg/dl; Potassium 3.7 mmol/L (3.3-5.1); Sodium 142 mmol/L (135-145); Total Protein 6.6 g/dL (6.5-8.0); Triglycerides 62 mg/dL
== END 2022-03-07 08:47 | disposition home or self-care (01) ==
LOC: HO.10HDL 08:46
PROVIDERS: Visit Provider Internal Medicine
DX: I10 Essential (primary) hypertension (principal); E78.00 Pure hypercholesterolemia, unspecified; J44.1 Chronic obstructive pulmonary disease with (acute) exacerbation
CPT/HCPCS: 36415; 80053; 80061

== ENCOUNTER 2022-06-19 10:43 | Outpatient (REF) | payer MEDICARE, SELFPAY ==
--- NOTE | ~2022-06-19 | MM_ITS ---
EXAMINATION: MM SCREENING DIGITAL BREAST TOMOSYNTHESIS, BILATERAL CLINICAL INFORMATION: Screening. Asymptomatic. The lifetime risk of breast cancer based on the Tyrer-Cuzick Model is 4%. COMPARISON: Mammography: 09/27/2020, 09/30/2019, 08/08/2018, 11/23/2016 TECHNIQUE: Digital breast tomosynthesis is performed in both the craniocaudal and mediolateral oblique views along with computer-aided detection (CAD). Synthesized 2D images are generated from the tomosynthesis. FINDINGS: There are scattered areas of fibroglandular density (ACR BI-RADS breast composition Category b). There are no significant masses, abnormal calcifications, or other abnormalities. Parenchymal pattern is similar to prior studies. No developing density or architectural abnormality. No significant changes. MM/MM tomosynthesis screening BI IMPRESSION: No mammographic evidence of malignancy. ASSESSMENT: BI-RADS 1: Negative RECOMMENDATION: Routine annual mammography screening. This patient's information was entered into a reminder system with a target due date for their next mammogram.
== END 2022-06-19 10:44 | disposition home or self-care (01) ==
LOC: HO.MAMMO 10:43
PROVIDERS: PCP Internal Medicine; Visit Provider Internal Medicine
DX: Z12.31 Encounter for screening mammogram for malignant neoplasm of breast (principal)
CPT/HCPCS: 77063; 77067

== ENCOUNTER 2022-08-07 09:57 | Outpatient (REF) | payer MEDICARE, SELFPAY ==
[2022-08-07 10:31] LABS: MANUAL DIFF FLAG NO
[2022-08-07 10:44] LABS: Basophils Absolute Auto 0.1 X10*3/uL (0.0-0.2); Basophils Percent Auto 1.1 % (0-2); Eosinophils Absolute Auto 0.2 X10*3/uL (0.0-0.4); Eosinophils Percent Auto 2.7 % (0-4); Hematocrit 42.2 % (37.0-47.0); Hemoglobin 13.2 g/dl (12.0-16.0); Imm Gran Abs Auto 0.02 X10*3/uL (0.00-0.03); Imm Gran Pct Auto 0.3 % (0.0-0.4); Lymphocytes Absolute Auto 2.5 X10*3/uL (1.2-4.9); Lymphocytes Percent Auto 37.1 % (20-40); Mean Corpuscular HGB Conc 31.3 g/dl (31.0-35.0); Mean Corpuscular Hemoglobin 27.5 pg (27.0-33.0); Mean Corpuscular Volume 87.9 fL (80.0-98.0); Mean Platelet Volume 10.4 fL (9.4-12.3); Monocytes Absolute Auto 0.5 X10*3/uL (0.1-1.2); Monocytes Percent Auto 7.4 % (2-11); Neutrophils Absolute Auto 3.4 x10*3/uL (2.0-8.3); Neutrophils Percent Auto 51.4 % (45-73); Platelet Count 269 X10*3/uL (160-400); Red Cell Distribution Width 12.7 % (11.0-16.0); White Blood Count 6.6 X10*3/uL (4.8-10.8)
[2022-08-07 11:24] LABS: Alanine Aminotransferase 12 U/L (0-31); Albumin Level 3.7 g/dL (3.5-5.0); Alkaline Phosphatase 94 U/L (39-117); Anion Gap 11 (12-20); Aspartate Amino Transferase 16 U/L (5-31); Bilirubin Total 0.5 mg/dL (0.0-1.0); Blood Urea Nitrogen 22 mg/dL (9-16); Carbon Dioxide 30 mmol/L (22-29); Chloride 104 mmol/L (96-108); Cholesterol 168 mg/dL; Estimated Glomerular Filt Rate > 60; Glucose Fasting 92 mg/dL (60-99); HDL Cholesterol 77 mg/dL; LDL Cholesterol Calculated 77 mg/dl; Potassium 3.5 mmol/L (3.3-5.1); Sodium 141 mmol/L (135-145); Total Protein 6.2 g/dL (6.5-8.0); Triglycerides 73 mg/dL
[2022-08-07 11:30] LABS: Vitamin D 25-OH Total 24.4 ng/mL (>30)
[2022-08-07 11:37] LABS: Vitamin B12 460 pg/mL (200-900)
== END 2022-08-07 09:58 | disposition home or self-care (01) ==
LOC: HO.10HDL 09:57
PROVIDERS: Visit Provider Internal Medicine
DX: E78.00 Pure hypercholesterolemia, unspecified (principal); I10 Essential (primary) hypertension; J44.1 Chronic obstructive pulmonary disease with (acute) exacerbation; K21.9 Gastro-esophageal reflux disease without esophagitis
CPT/HCPCS: 36415; 80053; 80061; 82306; 82607; 85025

== ENCOUNTER 2023-07-12 13:23 | Outpatient (AMB) | payer MEDICARE, SELFPAY ==
[2023-07-12 13:25] VITALS: BMI 38.8
--- NOTE | 2023-07-12 13:25 | MHC.OFFVIS ---
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 States no large varicose veins but does have spider veins. she does have some aching in her legs. Accompanied by: Self / Same As Patient Allergies Sulfa (Sulfonamide Antibiotics) [Sulfa (Sulfonamides)] Allergy (Intermediate, Verified 07/12/23 13:29) Rash verapamil [From Verelan] Allergy (Intermediate, Verified 07/12/23 13:29) Swelling VIJAY Inhibitors Adverse Reaction (Intermediate, Verified 07/12/23 13:29) Cough HPI [employer] Ashia Referral for Varicose Veins HPI Details Very pleasant 78-year-old female patient presents for painful varicose veins. Complaints include pain over varicosities, swelling of lower extremities, cramping, fatigue, and heaviness of the lower extremities. 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 It is noted more so in right leg. Patient denies any previous venous surgery or injections. Patient denies any history of DVT/ PE. Patient denies any history of phlebitis. Trial of compression includes - [id number] They now present for vascular evaluation regarding their varicose veins. COUNT INCLUDES THE [facility] Medical History COVID-19 vaccine administered Hx of thyroglossal duct cyst GERD (gastroesophageal reflux disease) COPD (chronic obstructive pulmonary disease) Asthma HTN (hypertension) Surgical History Hx of cataract extraction H/O colonoscopy Social History Are you a primary home care manager to a significant other at home: No Do you presently have visiting nurse or other home services: No Review of Systems Const Reports as per HPI ENT Reports no additional complaints Card Denies chest pain, Denies chest pain at rest and Denies chest pain with activity Resp Denies chest congestion and Denies cough GI Reports no additional complaints Musc Details: pain over varicosities, aching of lower extremities, swelling, cramping, heaviness and tiredness, itching Denies abnormal gait Skin/Breast Reports pruritus and Denies wounds Neuro Reports no additional complaints and Denies abnormal gait Psych Denies no additional complaints Physical Exam Vital Signs: BMI result Body Mass Index 38.8 Const General: cooperative, healthy appearing and comfortable Orientation/consciousness: oriented to person, oriented to place and oriented to time Neck Carotids: no bruits Chest Chest palpation & inspection: normal inspection of the chest and normal palpation of entire chest wall Resp Effort & Inspection: normal respiratory effort and able to speak in complete sentences Cardio Rate: regular rate Heart sounds: S1 normal heart sound present and S2 normal heart sound present Peripheral pulses: Peripheral pulses 2+ throughout GI Inspection: Yes normal to inspection Skin Other: +2 edema, large rope-like varicosities greater than 4 mm also multiple spider telangiectasias CEAP Classification C4 - skin color changes Ep - Etiology Primary As - superficial veins P - reflux General skin exam: dry skin Neuro General: oriented to person, oriented to place and oriented to time Extrem Right lower extremity: full ROM, normal capillary refill and edema Left lower extremity: full ROM, normal capillary refill and edema Psych Mental Status: mental status grossly normal Assessment & Plan Assessment & Plan (1) Varicose veins of right lower extremity with inflammation: Code(s): I83.11 - Varicose veins of right lower extremity with inflammation Plan: In short, the patient has evidence of venous insufficiency. I have discussed the pathophysiology with the patient. In addition I have provided informational material regarding venous disease to the patient. We have discussed conservative measures including compression, elevation, and exercise. I have also provided a handout regarding appropriate use of compression stockings and where to purchase good compression stockings as well. I have taken the liberty of ordering venous insufficiency testing with the patient. They will follow up with me after testing. The patient had an opportunity to ask questions regarding the treatment plan. All questions were answered. Imaging studies, laboratory studies and physical exam results were discussed and reviewed in detail. No major barriers to understanding were identified. The patient expressed understanding and agreement with the above treatment plan. The patient is aware they should contact our office by phone for worsening of the current condition or the appearance of new symptoms. Thank you for allowing me to participate in the vascular care of this patient. If you have any questions or concerns regarding the treatment for the above condition please do not hesitate to contact me. The office telephone contact is [phone]. This note is constructed using voice recognition software. While every effort has been made to ensure accuracy, suede cleaner errors may have been included. Thank you for allowing me to participate in the care of your patient. Yours sincerely, August Armendariz MD, FACS, R.P.V.I. Orders: Orders US venous duplex LE BI 1 Week I83.11 - Varicose veins of right lower extremity with inflammation Coding Level of Care Code New Pt Level 4 (22177) Diagnoses Varicose veins of right lower extremity with inflammation I83.11
== END 2023-07-12 13:47 | disposition home or self-care (01) ==
PROVIDERS: PCP Internal Medicine; Visit Provider Surgery Vascular Surgery
DX: I83.11 Varicose veins of right lower extremity with inflammation (principal)
CPT/HCPCS: 99203

== ENCOUNTER → 2023-07-12 13:23 | Outpatient (BNVA) | payer MEDICARE, SELFPAY | PROVIDERS: PCP Internal Medicine; Visit Provider Surgery Vascular Surgery | DX: I83.11 Varicose veins of right lower extremity with inflammation (principal) | CPT/HCPCS: 99202 ==

== ENCOUNTER 2023-07-30 10:18 | Outpatient (REF) | payer MEDICARE, SELFPAY ==
--- NOTE | ~2023-07-30 | US_ITS ---
EXAMINATION: US LOWER EXTREMITY VENOUS (REFLUX EXAM), BILATERAL CLINICAL INDICATION: Varicose veins of the right lower extremity COMPARISON: None. TECHNIQUE: Color flow triplex imaging and compression Doppler was performed to evaluate both the deep and the superficial systems bilaterally. To evaluate the superficial system, the examination was performed in the upright position. Color-flow Doppler ultrasound and compression ultrasound were utilized. In addition, maneuvers were utilized to demonstrate reflux. FINDINGS: RIGHT: 1. DEEP VENOUS ULTRASOUND OF THE RIGHT LOWER EXTREMITY: Common Femoral Vein: Compressible, normal respiratory variation and augmented flow. Popliteal Vein: Compressible, normal augmentation. Deep Venous Reflux: There is no evidence of reflux in the deep system in either the common femoral vein or the popliteal vein. There is no evidence of a Morrow's cyst. 2. SUPERFICIAL ULTRASOUND WITH DOPPLER OF RIGHT LOWER EXTREMITY: RIGHT GREAT SAPHENOUS VEIN: Saphenofemoral Junction: 5 mm. No reflux. Proximal Thigh: 5 mm. No reflux. Mid Thigh: 2 mm. No reflux. Above Knee: 2 mm. No reflux. Below Knee: 2 mm. No reflux. Mid Calf: 3 mm. No reflux. Ankle: 1 mm. No reflux. DUPLICATED GREAT SAPHENOUS VEIN: Yes, laterally and without reflux. RIGHT SMALL SAPHENOUS VEIN: Proximal: 4 mm. No reflux. Distal: 3 mm. No reflux. PERFORATORS: Mid thigh, mid calf, and distal calf measuring 2 mm, without reflux. LEFT: 1. DEEP VENOUS ULTRASOUND OF THE LEFT LOWER EXTREMITY: Common Femoral Vein: Compressible, normal respiratory variation and augmented flow. Popliteal Vein: Compressible, normal augmentation. Deep Venous Reflux: There is no evidence of reflux in the deep system in either the common femoral vein or the popliteal vein. There is no evidence of a Morrow's cyst. 2. SUPERFICIAL ULTRASOUND WITH DOPPLER OF LEFT LOWER EXTREMITY: LEFT GREAT SAPHENOUS VEIN: Saphenofemoral Junction: 6 mm. No reflux. Proximal Thigh: 4 mm. No reflux. Mid Thigh: 2 mm. No reflux. Above Knee: 2 mm. No reflux. Below Knee: 4 mm. No reflux. Mid Calf: 2 mm. No reflux. Ankle: 2 mm. No reflux. DUPLICATED GREAT SAPHENOUS VEIN: Yes, laterally and without reflux. LEFT SMALL SAPHENOUS VEIN: Proximal: 3 mm. No reflux. Distal: 2 mm. No reflux. PERFORATORS: Proximal calf measuring 3 mm, without reflux. US/US venous duplex LE BI IMPRESSION: No evidence of bilateral lower extremity abnormal superficial venous reflux. Abnormal lower extremity venous reflux times: Superficial and deep calf veins: >500 ms Femoropopliteal veins: >1000 ms Perforating veins: >350 ms Loly N, Anderson J, Colette L, [place], Dante SS, Deion Solorio, Odalys WH. Definition of venous reflux in lower-extremity veins.J Vasc Surg. 2003; [id number]. .
== END 2023-07-30 10:19 | disposition home or self-care (01) ==
LOC: HO.US 10:18
PROVIDERS: PCP Internal Medicine; Visit Provider Surgery Vascular Surgery
DX: I83.11 Varicose veins of right lower extremity with inflammation (principal)
CPT/HCPCS: 93970

== ENCOUNTER 2023-08-09 09:32 | Outpatient (REF) | payer MEDICARE, SELFPAY ==
[2023-08-09 11:02] LABS: Alanine Aminotransferase 15 U/L (0-31); Albumin Level 3.6 g/dL (3.5-5.0); Alkaline Phosphatase 77 U/L (39-117); Anion Gap 11 (12-20); Aspartate Amino Transferase 15 U/L (5-31); Bilirubin Total 0.6 mg/dL (0.0-1.0); Blood Urea Nitrogen 23 mg/dL (9-16); Calcium 9.5 mg/dL (8.4-10.2); Carbon Dioxide 31 mmol/L (22-29); Chloride 104 mmol/L (96-108); Estimated Glomerular Filt Rate 53; Glucose Random 97 mg/dL (60-115); Potassium 3.7 mmol/L (3.3-5.1); Sodium 142 mmol/L (135-145); Total Protein 6.5 g/dL (6.5-8.0)
== END 2023-08-09 09:33 | disposition home or self-care (01) ==
LOC: HO.10HDL 09:32
PROVIDERS: Visit Provider Internal Medicine
DX: E78.00 Pure hypercholesterolemia, unspecified (principal); I10 Essential (primary) hypertension; I83.813 Varicose veins of bilateral lower extremities with pain; J44.1 Chronic obstructive pulmonary disease with (acute) exacerbation; R05.9 Cough, unspecified
CPT/HCPCS: 36415; 80053

== ENCOUNTER 2023-08-30 13:50 | Outpatient (AMB) | payer MEDICARE, SELFPAY ==
--- NOTE | 2023-08-30 13:57 | A.OFFVIS_ITS ---
Intake Vital Signs 08/30/23 13:58 Height 5 ft 4 in Weight 226 lb BMI 38.8 Intake Visit Reasons: follow up 07/30/23 Intake Note: follow up 07/30/23 for LE swelling and spider veins. Pt states that swelling is worse in the summer time and does have bilateral LE achiness. She states she does have more frequent aching on the Right LE Accompanied by: Self / Same As Patient Allergies Sulfa (Sulfonamide Antibiotics) [Sulfa (Sulfonamides)] Allergy (Intermediate, Verified 08/30/23 14:00) Rash verapamil [From Verelan] Allergy (Intermediate, Verified 08/30/23 14:00) Swelling VIJAY Inhibitors Adverse Reaction (Intermediate, Verified 08/30/23 14:00) Cough HPI follow up 07/30/23 HPI Details Very pleasant 78-year-old female presents for follow-up regarding venous insufficiency. She continues to have bilateral lower extremity swelling. She does complain of left knee pain. She now presents for follow-up with venous insufficiency testing. [facility] Medical History COVID-19 vaccine administered Hx of thyroglossal duct cyst GERD (gastroesophageal reflux disease) COPD (chronic obstructive pulmonary disease) Asthma HTN (hypertension) Surgical History Hx of cataract extraction H/O colonoscopy Social History Are you a primary child day care center worker to a significant other at home: No Do you presently have visiting nurse or other home services: No Review of Systems Const All systems reviewed & are unremarkable except as noted in HPI and below Reports no additional complaints ENT Reports Normal hearing present Card Denies chest pain, Denies chest pain at rest, Denies chest pain with activity and Denies pedal edema Resp Denies cough GI Denies abdominal pain Musc Denies abnormal gait, Denies muscle cramps and Denies radiating pain into limb Skin/Breast Denies skin ulcer and Denies wounds Neuro Reports Normal hearing present and Denies abnormal gait Psych Reports no additional complaints Physical Exam Vital Signs: BMI result Body Mass Index 38.8 Const General: cooperative, healthy appearing and comfortable Orientation/consciousness: oriented to person, oriented to place and oriented to time HEENT Head: Yes normal to inspection Neck Neck: Yes normal visual inspection Carotids: no bruits Chest Chest palpation & inspection: normal inspection of the chest Resp Effort & Inspection: normal respiratory effort and able to speak in complete sentences Auscultation: clear to auscultation bilaterally, no crackles, no rales, no rhonchi and no wheezes Cardio Rate: regular rate Rhythm: regular rhythm Heart sounds: S1 normal heart sound present and S2 normal heart sound present Bruits: no carotid bruits Peripheral pulses: Peripheral pulses 2+ throughout GI Inspection: Yes normal to inspection Skin Wounds: no wounds Hair: normal Neuro General: oriented to person, oriented to place and oriented to time Cranial nerves: Yes CN's II-XII intact bilaterally and Yes Normal hearing present Cognition (Neuro): normal cognition Motor exam (neuro): 5/5 motor strength present throughout Extrem Other: venous exam: No significant superficial varicosities or spider telangiectasias, minimal edema General: No clubbing, No cyanosis and No edema Psych Appearance: grossly normal Mental Status: mental status grossly normal Speech and movement: Normal speech and movement present Results Reviewed Results Reviewed: Brief summary of venous insufficiency testing is as follows: right great saphenous vein: negative right small saphenous vein: negative right accessory vein: none present left great saphenous vein: negative left small saphenous vein: negative left accessory vein: none present Please note there is no evidence of any venous aneurysms or significant tortuosity Assessment & Plan Assessment & Plan (1) Varicose veins of right lower extremity with inflammation: Code(s): I83.11 - Varicose veins of right lower extremity with inflammation Plan: In short patient is negative for any significant venous insufficiency. We did discuss routine conservative measures including compression elevation and exercise. Should pain symptoms persist may benefit from evaluation of the left knee by Orthopedics. She will follow up with us on an as-needed basis. Thank you for allowing us to assist in her care. If there are any questions or concerns please do not hesitate to contact us. Coding Level of Care Code Est Pt Level 4 (51856) Diagnoses Varicose veins of right lower extremity with inflammation I83.11
[2023-08-30 13:58] VITALS: BMI 38.8
== END 2023-08-30 14:16 | disposition home or self-care (01) ==
PROVIDERS: PCP Internal Medicine; Visit Provider Surgery Vascular Surgery
DX: I83.11 Varicose veins of right lower extremity with inflammation (principal)
CPT/HCPCS: 99213

== ENCOUNTER → 2023-08-30 13:50 | Outpatient (BNVA) | payer MEDICARE, SELFPAY | PROVIDERS: PCP Internal Medicine; Visit Provider Surgery Vascular Surgery | DX: I83.11 Varicose veins of right lower extremity with inflammation (principal) | CPT/HCPCS: 99212 ==

== ENCOUNTER 2023-09-17 08:48 | Outpatient (REF) | payer MEDICARE, SELFPAY ==
--- NOTE | ~2023-09-17 | XR_ITS ---
EXAMINATION: XR KNEE, LEFT CLINICAL INFORMATION: Pain in left knee. COMPARISON: None available. TECHNIQUE: Three views of the left knee. FINDINGS: Moderate joint effusion. Moderate narrowing of the lateral compartment. Small tricompartmental osteophytes. The bones are diffusely demineralized. XR/XR knee LT 3V IMPRESSION: Moderate joint effusion. Moderate degenerative changes.
== END 2023-09-17 08:49 | disposition home or self-care (01) ==
LOC: HO.HOSX 08:48
PROVIDERS: Visit Provider Orthopaedic Surgery
DX: M25.562 Pain in left knee (principal)
CPT/HCPCS: 73562; 99202

== ENCOUNTER 2023-09-17 10:50 | Outpatient (AMB) | payer MEDICARE, SELFPAY ==
[2023-09-17 10:56] VITALS: BMI 38.8
--- NOTE | 2023-09-17 10:56 | MHC.OFFVIS ---
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 Patient reports her pain has been going on for about a year and is a 1 on the 1-10 pain scale. She reports she is on prednisone for treatment of her chronic obstructive pulmonary disease and it has helped the pain. She denies,injections and surgery. She denies any locking or giving way. Allergies Sulfa (Sulfonamide Antibiotics) [Sulfa (Sulfonamides)] Allergy (Intermediate, Verified 09/17/23 11:12) Rash verapamil [From Verelan] Allergy (Intermediate, Verified 09/17/23 11:12) Swelling VIJAY Inhibitors Adverse Reaction (Intermediate, Verified 09/17/23 11:12) Cough Medication List - Last Reconciled 09/17/23 by Juan Tidwell MD albuterol sulfate 90 mcg/actuation (Ventolin HFA) 2 puffs inhalation Q4-6H PRN amlodipine 2.5 mg PO DAILY fluticasone propion-salmeterol 250-50 mcg/dose (Advair Diskus) 1 inh inhalation BID fluticasone propionate 50 mcg/actuation 1 spray intranasal BID loratadine 10 mg PO DAILY montelukast 1 tab PO BEDTIME omeprazole 1 cap PO DAILY valsartan-hydrochlorothiazide 320-25 mg 1 tab PO DAILY PFSH Medical History COVID-19 vaccine administered Hx of thyroglossal duct cyst GERD (gastroesophageal reflux disease) COPD (chronic obstructive pulmonary disease) Asthma HTN (hypertension) Surgical History Hx of cataract extraction H/O colonoscopy Social History (Updated 09/17/23 @ 11:12 by Marizol Brown CMA) Are you a primary intensive care medicine specialist to a significant other at home: No Do you presently have visiting nurse or other home services: No Patient Tobacco Use Status: Former Tobacco user Physical Exam Vital Signs: BMI result Body Mass Index 38.8 Const Other: Well-nourished well-developed very friendly female awake alert and oriented x3 in no acute distress Extrem Other: Bilateral lower extremity examination shows good capillary refill, no skin lesions noted, normal sensation light touch Left knee examination shows a minimal effusion, palpable crepitus with range of motion, pain with range of motion, no instability Results Reviewed Results Reviewed: X-rays of the patient's left knee show mild to moderate diffuse joint space narrowing, no acute bony abnormalities Assessment & Plan Assessment & Plan (1) Left knee pain: Code(s): M25.562 - Pain in left knee Plan Ms. Tang presents with left knee pain due to degenerative joint disease. I had a lengthy discussion with the patient regarding the treatment options. At this point the patient's symptoms are tolerable on her prednisone. She will continue with her activity modifications. We will hold off on an injection. I will see her back later this year prior to her trip to [place]. She will contact me prior to that time should any questions or concerns arise. Feel free to call me at any time should questions regarding her orthopedic management arise. Thank you very much for asking me to see this very friendly patient. I spent 22 minutes in reviewing the patient's records and imaging studies, seeing the patient and documenting in the medical record. Orders: Orders XR knee LT 3V Today M25.562 - Pain in left knee Coding Level of Care Code New Pt Level 2 (48475) Diagnoses Left knee pain M25.562
== END 2023-09-17 11:29 | disposition home or self-care (01) ==
PROVIDERS: PCP Internal Medicine; Visit Provider Orthopaedic Surgery
DX: M25.562 Pain in left knee (principal)
CPT/HCPCS: 99202

== ENCOUNTER 2023-09-26 09:24 | Outpatient (REF) | payer MEDICARE, SELFPAY ==
[2023-09-26 10:45] LABS: Cholesterol 229 mg/dL (<200); HDL Cholesterol 77 mg/dL (>40); LDL Cholesterol Calculated 131 mg/dL (<100); Triglycerides 107 mg/dL (<150)
== END 2023-09-26 09:25 | disposition home or self-care (01) ==
LOC: HO.10HDL 09:24
PROVIDERS: Visit Provider Internal Medicine
DX: E78.00 Pure hypercholesterolemia, unspecified (principal); I10 Essential (primary) hypertension; J44.1 Chronic obstructive pulmonary disease with (acute) exacerbation; M22.2X2 Patellofemoral disorders, left knee
CPT/HCPCS: 36415; 80061

== ENCOUNTER 2024-03-28 09:21 | Outpatient (REF) | payer MEDICARE, SELFPAY ==
[2024-03-28 11:10] LABS: Alanine Aminotransferase 12 U/L (0-31); Albumin Level 3.9 g/dL (3.5-5.0); Alkaline Phosphatase 83 U/L (39-117); Anion Gap 11 (12-20); Aspartate Amino Transferase 14 U/L (5-31); Bilirubin Total 0.6 mg/dL (0.0-1.0); Blood Urea Nitrogen 26 mg/dL (9-16); Calcium 9.8 mg/dL (8.4-10.2); Carbon Dioxide 30 mmol/L (22-29); Chloride 105 mmol/L (96-108); Cholesterol 182 mg/dL (<200); Estimated Glomerular Filt Rate 51; Glucose Random 98 mg/dL (60-115); HDL Cholesterol 76 mg/dL (>40); LDL Cholesterol Calculated 91 mg/dL (<100); Potassium 3.7 mmol/L (3.3-5.1); Sodium 142 mmol/L (135-145); Triglycerides 79 mg/dL (<150)
== END 2024-03-28 09:22 | disposition home or self-care (01) ==
LOC: HO.10HDL 09:21
PROVIDERS: Visit Provider Internal Medicine
DX: E78.00 Pure hypercholesterolemia, unspecified (principal); I10 Essential (primary) hypertension; J44.1 Chronic obstructive pulmonary disease with (acute) exacerbation; R53.83 Other fatigue
CPT/HCPCS: 36415; 80053; 80061

== ENCOUNTER 2024-04-03 10:58 | Outpatient (AMB) | payer MEDICARE, SELFPAY ==
--- NOTE | 2024-04-03 11:01 | MHC.OFFVIS ---
Intake Visit Reasons: Bilateral knee pains Intake Note: Amber is a 79 year old female who presents with complaints of bilateral knee pains. The patient describes her pains as sharp in nature. Her pains have gotten worse over the last year in spite of continued non operative treatments. She has tried Tylenol and anti-inflammatory medicines which gave her minimal relief. She denies any locking or giving way. She wishes hold off on surgery for as long as possible. She has done physical therapy exercises aggravated her pain. Allergies Sulfa (Sulfonamide Antibiotics) [Sulfa (Sulfonamides)] Allergy (Intermediate, Verified 04/03/24 11:01) Rash verapamil [From Verelan] Allergy (Intermediate, Verified 04/03/24 11:01) Swelling VIJAY Inhibitors Adverse Reaction (Intermediate, Verified 04/03/24 11:01) Cough Medication List - Last Reconciled 04/03/24 by Juan Tidwell MD albuterol sulfate 90 mcg/actuation (Ventolin HFA) 2 puffs inhalation Q4-6H PRN amlodipine 2.5 mg PO DAILY fluticasone propion-salmeterol 250-50 mcg/dose (Advair Diskus) 1 inh inhalation BID fluticasone propionate 50 mcg/actuation 1 spray intranasal BID loratadine 10 mg PO DAILY montelukast 1 tab PO BEDTIME omeprazole 1 cap PO DAILY valsartan-hydrochlorothiazide 320-25 mg 1 tab PO DAILY PFSH Medical History COVID-19 vaccine administered Hx of thyroglossal duct cyst GERD (gastroesophageal reflux disease) COPD (chronic obstructive pulmonary disease) Asthma HTN (hypertension) Surgical History Hx of cataract extraction H/O colonoscopy Social History (Updated 09/17/23 @ 11:12 by Marizol Brown CMA) Are you a primary child care lead teacher to a significant other at home: No Do you presently have visiting nurse or other home services: No Patient Tobacco Use Status: Former Tobacco user Physical Exam Const Other: Well-nourished well-developed very friendly female awake alert and oriented x3 in no acute distress Extrem Other: Bilateral lower extremity examination shows good capillary refill, no skin lesions noted, normal sensation light touch Bilateral knee examination shows minimal effusions, palpable crepitus with range of motion, pain with range of motion, range of motion from -3 degrees to 115 degrees, no instability Office Procedures Joint Injection/Aspiration Joint Injection/Aspiration Primary Site: left knee Prep: site was prepped using aseptic technique Injected: 40 mg of, DepoMedrol and 1% plain lidocaine Procedure: The patient tolerated the procedure well Coding 17634 - Large joint Procedure code (CPT) selection complete Joint Injection/Aspiration Joint Injection/Aspiration Primary Site: right knee Prep: site was prepped using aseptic technique Injected: 40 mg of, DepoMedrol and 1% plain lidocaine Procedure: The patient tolerated the procedure well Coding 31194 - Large joint Procedure code (CPT) selection complete Results Reviewed Results Reviewed: X-rays of the patient's bilateral knees taken previously show joint space narrowing, subchondral sclerosis, no acute bony abnormalities Assessment & Plan Assessment & Plan (1) Arthritis of left knee: Code(s): M17.12 - Unilateral primary osteoarthritis, left knee Category: Medical (2) Arthritis of right knee: Code(s): M17.11 - Unilateral primary osteoarthritis, right knee Category: Medical Plan Ms. Tang presents with bilateral knee pains due to degenerative joint disease. I had a lengthy discussion with the patient regarding the treatment options. The risks and benefits of bilateral knee cortisone injections were discussed at length with the patient. The patient wished to proceed. She tolerated the injections well. She will continue with her home exercise program. She will contact me prior to her follow-up appointment in 3 months should any questions or concerns arise. Feel free to call me at any time should questions regarding her orthopedic management arise. I spent 22 minutes in reviewing the patient's records and imaging studies, seeing the patient and documenting in the medical record. Orders: Orders AMB Joint Injection/Aspiration Today M17.11 - Unilateral primary osteoarthritis, right knee AMB Joint Injection/Aspiration Today M17.12 - Unilateral primary osteoarthritis, left knee Coding Level of Care Code Est Pt Level 3 (41277) Complex EM visit Add On G2211 Diagnoses Arthritis of left knee M17.12 Arthritis of right knee M17.11 CPT Codes Coding - 04452 Large joint: 13915 - Large joint ([id number]) Coding - 62830 Large joint: 58842 - Large joint ([id number])
== END 2024-04-03 11:28 | disposition home or self-care (01) ==
PROVIDERS: PCP Internal Medicine; Visit Provider Orthopaedic Surgery
DX: M17.0 Bilateral primary osteoarthritis of knee (principal)
CPT/HCPCS: 20610; 99213

== ENCOUNTER → 2024-04-03 10:58 | Outpatient (BNVA) | payer MEDICARE, SELFPAY | PROVIDERS: PCP Internal Medicine; Visit Provider Orthopaedic Surgery | DX: M17.0 Bilateral primary osteoarthritis of knee (principal) | CPT/HCPCS: 20610; 99212; J1010 ==

== ENCOUNTER 2024-07-09 10:35 | Outpatient (AMB) | payer MEDICARE, SELFPAY ==
--- NOTE | 2024-07-09 10:38 | A.OFFVIS_ITS ---
Vital Signs 07/09/24 10:46 Height 5 ft 4 in Weight 226 lb BMI 38.8 Intake Visit Reasons: Bilateral knee pains Intake Note: Amber is a 79 year old female who presents with complaints of bilateral knee pains. She describes her pains as sharp in nature. She has had cortisone injections in the past which gave her fairly good relief. She has tried Tylenol and anti-inflammatory medicines which gave her minimal relief. She has also done physical therapy exercises which aggravated her pain. She wishes to hold off on surgery if at all possible. Allergies Sulfa (Sulfonamide Antibiotics) [Sulfa (Sulfonamides)] Allergy (Intermediate, Verified 07/09/24 10:39) Rash verapamil [From Verelan] Allergy (Intermediate, Verified 07/09/24 10:39) Swelling VIJAY Inhibitors Adverse Reaction (Intermediate, Verified 07/09/24 10:39) Cough Medication List - Last Reconciled 07/09/24 by Juan Tidwell MD albuterol sulfate 90 mcg/actuation (Ventolin HFA) 2 puffs inhalation Q4-6H PRN amlodipine 2.5 mg PO DAILY fluticasone propion-salmeterol 250-50 mcg/dose (Advair Diskus) 1 inh inhalation BID fluticasone propionate 50 mcg/actuation 1 spray intranasal BID loratadine 10 mg PO DAILY montelukast 1 tab PO BEDTIME omeprazole 1 cap PO DAILY valsartan-hydrochlorothiazide 320-25 mg 1 tab PO DAILY PFSH Medical History COVID-19 vaccine administered Hx of thyroglossal duct cyst GERD (gastroesophageal reflux disease) COPD (chronic obstructive pulmonary disease) Asthma HTN (hypertension) Surgical History Hx of cataract extraction H/O colonoscopy Social History (Updated 09/17/23 @ 11:12 by Marizol Brown CMA) Are you a primary mall plant caretaker to a significant other at home: No Do you presently have visiting nurse or other home services: No Patient Tobacco Use Status: Former Tobacco user Physical Exam Vital Signs: BMI result Body Mass Index 38.8 Const Other: Well-nourished well-developed very friendly female awake alert and oriented x3 in no acute distress Extrem Other: Bilateral lower extremity examination shows good capillary refill, no skin lesions noted, normal sensation light touch Bilateral knee examination shows minimal effusions, palpable crepitus with range of motion, pain with range of motion, no instability Office Procedures AMB Joint Injection/Aspiration Joint Injection/Aspiration Primary Site: left knee Prep: site was prepped using aseptic technique Injected: 40 mg of, DepoMedrol and 1% plain lidocaine Procedure: The patient tolerated the procedure well Coding 47473 - Large joint Procedure code (CPT) selection complete AMB Joint Injection/Aspiration Joint Injection/Aspiration Primary Site: right knee Prep: site was prepped using aseptic technique Injected: 40 mg of, DepoMedrol and 1% plain lidocaine Procedure: The patient tolerated the procedure well Coding 26465 - Large joint Procedure code (CPT) selection complete Results Reviewed Results Reviewed: X-rays of the patient's bilateral knees taken previously show joint space narrowing, subchondral sclerosis, no acute bony abnormalities Assessment & Plan Assessment & Plan (1) Arthritis of left knee: Code(s): M17.12 - Unilateral primary osteoarthritis, left knee Category: Medical (2) Arthritis of right knee: Code(s): M17.11 - Unilateral primary osteoarthritis, right knee Category: Medical Plan Amber presents with bilateral knee pains due to degenerative joint disease. I had a lengthy discussion with the patient regarding the treatment options. She wishes to hold off on surgery for as long as possible. I agree with this plan. The risks and benefits of bilateral knee cortisone injections were discussed at length with the patient. The patient wished to proceed. She tolerated the injections well. She will continue with her home exercise program. She will contact me prior to her follow-up appointment in 3 months should any questions or concerns arise. Feel free to call me at any time should questions regarding her orthopedic management arise. I spent 22 minutes in reviewing the patient's records and imaging studies, seeing the patient and documenting in the medical record. Orders: Orders AMB Joint Injection/Aspiration Today M17.12 - Unilateral primary osteoarthritis, left knee AMB Joint Injection/Aspiration Today M17.11 - Unilateral primary osteoarthritis, right knee Coding Level of Care Code Est Pt Level 3 (11610) Complex EM visit Add On G2211 Diagnoses Arthritis of left knee M17.12 Arthritis of right knee M17.11 CPT Codes Coding - 68536 Large joint: 40374 - Large joint ([id number]) Coding - 87380 Large joint: 53307 - Large joint ([id number])
[2024-07-09 10:46] VITALS: BMI 38.8
== END 2024-07-09 11:15 | disposition home or self-care (01) ==
PROVIDERS: PCP Internal Medicine; Visit Provider Orthopaedic Surgery
DX: M17.0 Bilateral primary osteoarthritis of knee (principal)
CPT/HCPCS: 20610; 99213

== ENCOUNTER → 2024-07-09 10:35 | Outpatient (BNVA) | payer MEDICARE, SELFPAY | PROVIDERS: PCP Internal Medicine; Visit Provider Orthopaedic Surgery | DX: M17.0 Bilateral primary osteoarthritis of knee (principal) | CPT/HCPCS: 20610; 99212; J1010; J2003 ==

== ENCOUNTER 2024-08-07 09:58 | Outpatient (REF) | payer MEDICARE, SELFPAY ==
[2024-08-07 10:20] LABS: MANUAL DIFF FLAG NO
[2024-08-07 11:07] LABS: Basophils Absolute Auto 0.1 X10*3/uL (0.0-0.2); Eosinophils Absolute Auto 0.2 X10*3/uL (0.0-0.4); Hematocrit 43.4 % (37.0-47.0); Hemoglobin 13.8 g/dl (12.0-16.0); Imm Gran Abs Auto 0.03 X10*3/uL (0.00-0.03); Imm Gran Pct Auto 0.5 % (0.0-0.4); Lymphocytes Absolute Auto 2.4 X10*3/uL (1.2-4.9); Lymphocytes Percent Auto 37.7 % (20-40); Mean Corpuscular HGB Conc 31.8 g/dl (31.0-35.0); Mean Corpuscular Hemoglobin 28.3 pg (27.0-33.0); Mean Corpuscular Volume 88.9 fL (80.0-98.0); Mean Platelet Volume 10.7 fL (9.4-12.3); Monocytes Absolute Auto 0.5 X10*3/uL (0.1-1.2); Monocytes Percent Auto 7.9 % (2-11); Neutrophils Absolute Auto 3.2 x10*3/uL (2.0-8.3); Neutrophils Percent Auto 49.9 % (45-73); Platelet Count 247 X10*3/uL (160-400); Red Blood Count 4.88 X10*6/uL (4.20-5.50); White Blood Count 6.3 X10*3/uL (4.8-10.8)
[2024-08-07 12:38] LABS: Alanine Aminotransferase 15 U/L (0-31); Albumin Level 3.6 g/dL (3.5-5.0); Alkaline Phosphatase 76 U/L (39-117); Anion Gap 9 (12-20); Aspartate Amino Transferase 19 U/L (5-31); Bilirubin Total 0.5 mg/dL (0.0-1.0); Blood Urea Nitrogen 18 mg/dL (9-16); Calcium 9.1 mg/dL (8.4-10.2); Carbon Dioxide 30 mmol/L (22-29); Chloride 108 mmol/L (96-108); Cholesterol 176 mg/dL (<200); Estimated Glomerular Filt Rate 59; Glucose Random 89 mg/dL (60-115); HDL Cholesterol 81 mg/dL (>40); LDL Cholesterol Calculated 83 mg/dL (<100); Potassium 3.5 mmol/L (3.3-5.1); Sodium 143 mmol/L (135-145); Total Protein 6.7 g/dL (6.5-8.0); Triglycerides 62 mg/dL (<150)
== END 2024-08-07 09:59 | disposition home or self-care (01) ==
LOC: HO.LAB 09:58
PROVIDERS: PCP Internal Medicine; Visit Provider Internal Medicine
DX: I10 Essential (primary) hypertension (principal); E78.00 Pure hypercholesterolemia, unspecified; J44.1 Chronic obstructive pulmonary disease with (acute) exacerbation; Z68.38 Body mass index [BMI] 38.0-38.9, adult
CPT/HCPCS: 36415; 80053; 80061; 85025

== ENCOUNTER 2024-10-08 09:36 | Outpatient (AMB) | payer MEDICARE, SELFPAY ==
--- NOTE | 2024-10-08 09:43 | A.OFFVIS_ITS ---
Vital Signs 10/08/24 09:44 Height 5 ft 4 in Weight 226 lb BMI 38.8 Intake Visit Reasons: Bilateral knee pains Intake Note: Amber is a 79 year old female who presents with complaints of bilateral knee pains. She describes her pains as sharp nature. She has taken Tylenol and Aleve which gave her mild relief. She has also done physical therapy exercises which aggravated her pain. She wishes to hold off on surgery if at all possible. She has had cortisone injections in the past which gave her good relief. Allergies Sulfa (Sulfonamide Antibiotics) [Sulfa (Sulfonamides)] Allergy (Intermediate, Verified 10/08/24 09:44) Rash verapamil [From Verelan] Allergy (Intermediate, Verified 10/08/24 09:44) Swelling VIJAY Inhibitors Adverse Reaction (Intermediate, Verified 10/08/24 09:44) Cough Medication List - Last Reconciled 10/08/24 by Juan Tidwell MD albuterol sulfate 90 mcg/actuation (Ventolin HFA) 2 puffs inhalation Q4-6H PRN amlodipine 2.5 mg PO DAILY fluticasone propion-salmeterol 250-50 mcg/dose (Advair Diskus) 1 inh inhalation BID fluticasone propionate 50 mcg/actuation 1 spray intranasal BID loratadine 10 mg PO DAILY montelukast 1 tab PO BEDTIME omeprazole 1 cap PO DAILY valsartan-hydrochlorothiazide 320-25 mg 1 tab PO DAILY PFSH Medical History COVID-19 vaccine administered Hx of thyroglossal duct cyst GERD (gastroesophageal reflux disease) COPD (chronic obstructive pulmonary disease) Asthma HTN (hypertension) Surgical History Hx of cataract extraction H/O colonoscopy Social History (Updated 09/17/23 @ 11:12 by Marizol Brown CMA) Are you a primary livestock caretaker to a significant other at home: No Do you presently have visiting nurse or other home services: No Patient Tobacco Use Status: Former Tobacco user Physical Exam Vital Signs: BMI result Body Mass Index 38.8 Const Other: Well-nourished well-developed very friendly female awake alert and oriented x3 in no acute distress Extrem Other: Bilateral lower extremity examination shows good capillary refill, no skin lesions noted, normal sensation light touch Bilateral knee examination shows minimal effusions, palpable crepitus with range of motion, pain with range of motion, no instability Office Procedures AMB Joint Injection/Aspiration Joint Injection/Aspiration Primary Site: left knee Prep: site was prepped using aseptic technique Injected: 40 mg of, DepoMedrol and 1% plain lidocaine Procedure: The patient tolerated the procedure well Coding 66694 - Large joint Procedure code (CPT) selection complete AMB Joint Injection/Aspiration Joint Injection/Aspiration Primary Site: right knee Prep: site was prepped using aseptic technique Injected: 40 mg of, DepoMedrol and 1% plain lidocaine Procedure: The patient tolerated the procedure well Coding 52863 - Large joint Procedure code (CPT) selection complete Results Reviewed Results Reviewed: X-rays of the patient's bilateral knee show joint space narrowing, subchondral sclerosis, no acute bony abnormalities Assessment & Plan Assessment & Plan (1) Arthritis of left knee: Code(s): M17.12 - Unilateral primary osteoarthritis, left knee Category: Medical (2) Arthritis of right knee: Code(s): M17.11 - Unilateral primary osteoarthritis, right knee Category: Medical Plan Ms. Tang presents with bilateral knee pains due to degenerative joint disease. The risks and benefits of bilateral knee cortisone injections were discussed at length with the patient. The patient wished to proceed. She tolerated the injections well. She will continue with her home exercise program. She will contact me prior to her follow-up appointment in 3 months should any questions or concerns arise. Feel free to call me at any time should questions regarding orthopedic management arise. I spent 22 minutes in reviewing the patient's records and imaging studies, seeing the patient and documenting in the medical record. Orders: Orders AMB Joint Injection/Aspiration Today M17.12 - Unilateral primary osteoar thritis, left knee AMB Joint Injection/Aspiration Today M17.11 - Unilateral primary osteoarthritis, right knee Coding Level of Care Code Est Pt Level 3 (56785) Complex EM visit Add On G2211 Diagnoses Arthritis of left knee M17.12 Arthritis of right knee M17.11 CPT Codes Coding - 36762 Large joint: 71512 - Large joint ([id number]) Coding - 02234 Large joint: 22441 - Large joint ([id number])
[2024-10-08 09:44] VITALS: BMI 38.8
--- OUTSIDE RECORDS SUMMARY | 2024-10-08 10:41 | XMS_ITS | Clinical Summary ---
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 01/02/2018 Active AMLODIPINE BESYLATE, BULK, MISC Take by mouth. Active fluticasone propionate (FLONASE) 50 mcg/actuation nasal spray 2 Sprays by Each Nare route daily. Active fluticasone-ume clidinium-vilan terol (Trelegy Ellipta) 200-62.5-25 mcg inhaler Inhale into the lungs. 07/26/2023 Active ipratropium-alb uteroL (DUONEB) 0.5-2.5 mg/3 mL nebulizer solution Inhale 3 mL into the lungs 4 times daily. Active loratadine 10 mg capsule Take 10 mg by mouth daily. Active omeprazole (PriLOSEC) [address] capsule Take 20 mg by mouth daily. Active valsartan (DIOVAN) 320 mg tablet Take 320 mg by mouth daily. Active NEBULIZERS MISC by Does not apply route. Active rosuvastatin (CRESTOR) 5 mg tablet Take 1 tablet (5 mg total) by mouth 1 (one) time each day. Every other day. Active montelukast (SINGULAIR) 10 mg tablet TAKE 1 TABLET BY MOUTH AT BEDTIME 30 tablet 11 08/06/2024 Active Active Problems Problem Noted Date Diagnosed Date Allergic rhinitis 07/12/2017 Chronic obstructive pulmonary disease 02/28/2017 Encounters Date Type Department Care Team Description 07/29/2024 Telephone [facility] Pulmonary [address] [place] [address] Aleksander Berkowitz MA DME request ([facility] ) from Last 3 Months Immunizations Name Administration Dates Next Due Pfizer SARS-CoV-2 COVID-19, mRNA, LNP-S, preservative free 05/04/2021,10/14/2020,09/23/2020 Surgical History Surgery Date Site/Laterality Comments OTHER SURGICAL HISTORY 1999 PROCEDURE: HISTORY OTHER; COMMENT: Thyroid cyst removal COLONOSCOPY 2010 PROCEDURE: HISTORICAL COLONOSCOPY; COMMENT: Per pt. No path report received. Medical History Medical History Date Comments Allergic rhinitis 07/12/2017 DX:Allergic rh initis Chronic obstructive pulmonar y disease (CMS/HCC) 02/28/2017 DX:Chronic obstructive pulmo nary disease (HCC) Social History Tobacco Use Types Packs/Day Years Used Date Smoking Tobacco: Former Cigarettes Smokeless Tobacco: Never Alcohol Use Standard Drinks/Week Comments No 0 (1 standard drink = 0.6 oz pur e alcohol) Comments Unknown Sex and Gender Information Value Date Recorded Sex Assigned at Not on file Legal Sex Female 9:52 AM EST Gender Identity Not on file Sexual Orientation Not on file Obstetrics History Last Filed Vital Signs Vital Sign Reading Time Taken Comments Blood Pressure 112/64 07/08/2024 10:12 AM EST Pulse 79 07/08/2024 10:12 AM EST Temperature 36.4 ??C (97.6 ??F) 07/08/2024 10:[address] Respiratory Rate 16 07/08/2024 10:12 AM EST Oxygen Saturation 98% 07/08/2024 10:12 AM EST Inhaled Oxygen Concentration - - Weight 101 kg (222 lb 9.6 oz) 07/08/2024 10:12 A M EST Height 162.6 cm (5' 4 ) 07/08/2024 10:12 AM EST Body Mass Index 38.21 07/08/2024 10:12 AM EST Plan of Treatment Upcoming Encounters Date Type Department Care Team (Late st Contact Info) Description 01/08/2025 10:30 AM EDT Office Visit Pulmonolgy - [place] [address] [facility] [address] [place] [address] Bear Hough MD [address] [facility] [address] [place] [address] Health Maintenance Due Date Last Done Comments Zoster Vaccines (1 of 2) 1997 Depression Screening 07/01/2022 Falls Risk Assessment 07/01/2022 Hepatitis C Screening 07/01/2022 Medicare Annual Wellness Visit 07/01/2022 Osteoporosis Screening (Bone Density Screening) 07/01/2022 Social Influencers of Health Screening 07/01/2022 DTaP,Tdap,and Td Vaccines (2 - Td or Tdap) 10/28/2031 10/27/2021 Pneumococcal Vaccine: 50+ Years Completed 08/26/2019, 07/29/2018, 04/19/2016 RSV Immunization Patients 60+ Years Old Completed 08/11/2023 COVID-19 Vaccine Completed 04/09/2024, 05/2023, 05/16/2022, Additional history exists Influenza Vaccine Completed 04/09/2024, , 05/16/2022, Additional history exists HIB Vaccines Aged Out No longer eligi ble based on patient's age to complete this topic HPV Vaccines Aged Out No longer eligi ble based on patient's age to complete this topic Hepatitis A Vaccines Aged Out No long er eligible based on patient's age to complete this topic Hepatitis B Vaccines Aged Out No long er eligible based on patient's age to complete this topic IPV Vaccines Aged Out No longer eligi ble based on patient's age to complete this topic MMR Vaccines Aged Out No longer eligi ble based on patient's age to complete this topic Meningococcal ACWY Vaccine Aged Out N o longer eligible based on patient's age to complete this topic Meningococcal B Vacine Aged Out No lo nger eligible based on patient's age to complete this topic RSV Immunization Patients Under 20 months Aged Out No longer eligible based on patient's age to complete this topic Varicella Vaccines Aged Out No longer eligible based on patient's age to complete this topic Insurance MEDICARE [facility] Care Teams Sand Conditioner Relationship Specialty Start Date End Date Caren Martinez MD [address] PCP - General Internal Medicine 07/04/17
--- OUTSIDE RECORDS SUMMARY | 2024-10-08 10:41 | XMS_ITS | Patient Health Record ---
Author Organization [facility] Address [address] [place] [address] Care Team Providers Care Product Support Consultant Name Role Phone Noahstefan Caren Primary Care Provider Richar Quach Unavailable [phone] Allergies Allergen (clinical drug ingredient) Drug/Non Drug Allergy documented on EMR Reaction Allergy Type Onset Date Status sulfacetamide Sulfacetamide Sodium Unknown Drug Allergy Active Reason For Referral No Information Medications Medication SIG (Take, Route, Frequency, Duration) Notes Start Date End Date Status Valsartan-hydroCHLOROthiazi de 320-25 MG TAKE 1 TABLET BY MOUTH DAILY Oral for 90 Active Loratadine 10 MG TAKE 1 TABLET BY AMMY TH EVERY DAY Oral for 30 Active Singulair 10 MG 1 tablet Orally Once a day for 30 day(s) Active Fluticasone Propionate 50 MCG/ACT PUMP 1 SPRAY IEN BID Nasal for 30 Active Advair Diskus 500-50 MCG/DOSE INHALE 1 PUFF BY MOUTH EVERY 12 HOURS Inhalation for 30 Active ProAir HFA 108 (90 Base) MCG/ACT 1 puff as needed Inhalation every 4 hrs Active Omeprazole 20 MG 1 Orally Once a day Active DuoNeb as directed as directed Active Immunizations Vaccine Route Administration Date Status Comme nts Influenza Unknown 03/23/2020 Administered Social History Tobacco Use: Social History Observation Description Date Details (start date - stop date) Former Smoker NA - NA Tobacco Use/Smoking Question Answer Notes Patient is a former smoker How long has it been since you last smoked? > 10 years Alcohol Screen Question Answer Notes Did you have a drink containing alcohol in the p ast year? No Points 0 Interpretation Negative Section Notes: Nonsmoker; no sig alcohol Problems Problem Type SNOMED Code ICD Code Onset Dates Problem Status W/U Status Risk Notes Problem Screening for malignant neoplasm of colon (367615557) Encounter for screening for malignant neoplasm of colon (Z12.11) Active confirmed Problem Gastroesophageal reflux disease (128350747) GERD (gastroesopha geal reflux disease) (K21.9) Active confirmed Plan Of Treatment Future Test Test Name Order Date COLONOSCOPY 09/17/2020 Insurance Providers Payer Name Payer Address Payer Phone Subscriber Number Group Number Insured Name Patient Relationship to Insured Coverage Start Date Coverage End Date MEDICARE OF [place] [address] [place] [id number] [id number] NASRIN MEDINA Self - patient is the insured MEDEX ATT[employer] CLAIMS [address] [place] [address] [phone] [id number] NAS[employer]IN MEDINA Self - patient is the insured Medical (General) History Medical History History ICD Code Hypertension COPD Negative screening colonoscopies in 2000 and 05/2010 Denies DC,DM,CVA,renal disease GERD Surgical History Surgery Date(Month/Year) Cyst near thyroid--removed cateracts both eyes 04/2020-
--- OUTSIDE RECORDS SUMMARY | 2024-10-08 10:41 | XMS_ITS | Clinical Summary ---
Author Organization [facility] Address [address] [place] [address] [address] [place] [address] Care Team Providers Care Coal Shooter Name Role Phone Unavailable Primary Care Provider Unavailabl e Immunizations Name Administration Dates Next Due Influenza, seasonal, injectable, preservative fr ee 04/09/2024 Pfizer Covid-19 Vaccine 12+ 04/09/2024 Social History Tobacco Use Types Packs/Day Years Used Date Smoking Tobacco: Never Assessed Comments Unknown Sex and Gender Information Value Date Recorded Sex Assigned at Female 04/15/2024 2:33 PM EDT Legal Sex Female 3:46 PM EDT Gender Identity Female 04/15/2024 2:33 PM EDT Sexual Orientation Straight 04/15/2024 2: 33 PM EDT Plan of Treatment Health Maintenance Due Date Last Done Comments Depression Screening 1945 SDOH Screening 1945 Alcohol/Substance Use Screening 1959 Tobacco Screening 1959 Hepatitis C Screening 1965 Zoster Vaccines (1 of 2) 1997 RSV Patients and Patients Aged 60 years or older (1 - 1-dose 75+ series) 2022 DTaP/Tdap/Td Vaccines (2 - Td or Tdap) 10/28/2031 10/27/2021 Pneumococcal Vaccine: 50+ Years Completed 08/26/2019, 07/29/2018, 04/19/2016 COVID-19 Vaccine Completed 04/09/2024, 05/2023, 05/16/2022, Additional [...] patient's age to complete this topic Meningococcal Vaccine Aged Out No mell lupe eligible based on patient's age to complete this topic RSV under 20 months Aged Out No longe r eligible based on patient's age to complete this topic Rotavirus Vaccines Aged Out No longer eligible based on patient's age to complete this topic Insurance [place] [phone] [facility] MEDEX CARE
== END 2024-10-08 10:23 | disposition home or self-care (01) ==
LOC: HO.HOS 09:36
PROVIDERS: PCP Internal Medicine; Visit Provider Orthopaedic Surgery
DX: M17.0 Bilateral primary osteoarthritis of knee (principal)
CPT/HCPCS: 20610; 99213

== ENCOUNTER → 2024-10-08 09:36 | Outpatient (BNVA) | payer MEDICARE, SELFPAY | PROVIDERS: PCP Internal Medicine; Visit Provider Orthopaedic Surgery | DX: M17.0 Bilateral primary osteoarthritis of knee (principal) | CPT/HCPCS: 20610; 99212; J1010; J2003 ==

== ENCOUNTER 2024-11-12 16:57 | Emergency (ER) | payer MEDICARE, SELFPAY ==
--- NOTE | ~2024-11-12 | XR_ITS ---
CLINICAL HISTORY: Low back pain s p fall 3 views lumbar spine Comparison: None Findings: Normal vertebral body alignment. No acute fractures or dislocation. Scoliosis. Multilevel degenerative changes of the lumbar spine with osteophytes and narrowing of the intervertebral disc space. IMPRESSION: No acute findings. This document has been electronically signed by: Lola Mosquera MD on 11/12/2024 19:17:55
--- NOTE | ~2024-11-12 | XR_ITS ---
CLINICAL HISTORY: opacity seen on CT 2 view chest x-ray Comparison: None Findings: No consolidation or effusion. Normal size heart. No acute fracture. IMPRESSION: 1. No acute findings. This document has been electronically signed by: Audra Fajardo MD on 11/12/2024 22:21:29
--- NOTE | ~2024-11-12 | CT_ITS ---
CLINICAL HISTORY: fall +HS CT Brain without contrast Comparison: None FINDINGS: Cortical sulci: There is diffuse prominence of the cortical sulci compatible with age-related atrophy. Ventricles: Normal for age Brain parenchyma: There is patchy lucency throughout the deep white matter indicating chronic microvascular leukomalacia. Extra axial spaces: Normal Posterior Fossa: Normal Extracranial soft tissues: Normal Additional abnormality: None IMPRESSION: Age-related atrophy with chronic microvascular leukomalacia. No hemorrhage, mass effect, or acute findings identified. This document has been electronically signed by: Lola Mosquera MD on 11/12/2024 20:11:21
--- NOTE | ~2024-11-12 | CT_ITS ---
CLINICAL HISTORY: fall +HS CT cervical spine without contrast Comparison: None Findings: Vertebral alignment is within normal limits. There is mild degenerative change. No acute fractures or dislocations. Visualized intracranial contents are unremarkable. Atherosclerosis calcification of the carotid bulbs. 5.3 mm ground-glass opacity of the left upper lobe. IMPRESSION: No acute findings. Ground-glass opacity of the left upper lobe. Further evaluation by CT chest as indicated. This document has been electronically signed by: Lola Mosquera MD on 11/12/2024 20:08:01
[2024-11-12 17:37] VITALS: BP 148/103; PULSE 56; RESP 18; TEMP 36.2; O2SAT 100; BMI 37.2
--- NOTE | 2024-11-12 17:37 | ED_ITS ---
HPI - Fall General Chief Complaint: Fall Stated Complaint: fall, back pain, hand lac Time Seen by Provider: 11/12/24 21:58 Source: patient, family (daughter), RN notes reviewed and old records reviewed Mode of arrival: ambulatory Limitations: no limitations History of Present Illness ED Provider: Luis HPI Narrative: 79-year-old female presents for evaluation of lower back pain, left hand laceration after falling. Patient reports that she fell about an hour and a half prior to arrival. She was on her back porch when she missed a step and fell down 4 or 5 steps. She hit her head but consciousness. She injured her right shoulder and left hand Her chief complaint is lower back pain She was able to walk but has pain while doing so Denies any neck pain and is not anticoagulated Related Data Home Medications ?Medication ?Instructions ?Recorded ?Confirmed albuterol sulfate 90 mcg/actuation 2 puff inhalation Q4-6H PRN 05/12/20 10/08/24 aerosol inhaler (Ventolin HFA) Shortness Of Breath fluticasone 250 mcg-salmeterol 50 1 inh inhalation BID 05/12/20 10/08/24 mcg/dose blistr powdr for inhalation (Advair Diskus) fluticasone propionate 50 1 spray intranasal BID 05/12/20 10/08/24 mcg/actuation nasal spray,suspension loratadine 10 mg tablet 10 mg PO DAILY 05/12/20 10/08/24 valsartan 320 1 tab PO DAILY 05/12/20 10/08/24 mg-hydrochlorothiazide 25 mg tablet montelukast 10 mg tablet 1 tab PO BEDTIME 10/15/20 10/08/24 omeprazole 20 mg capsule,delayed 1 cap PO DAILY 10/15/20 10/08/24 release amlodipine 2.5 mg tablet 2.5 mg PO DAILY 08/30/23 10/08/24 Previous Rx's ?Medication ?Instructions ?Recorded cyclobenzaprine 5 mg tablet 5 mg PO TID PRN muscle spasm #12 11/12/24 tabs Allergies Allergy/AdvReac Type Severity Reaction Status Date / Time Sulfa (Sulfonamide Allergy Intermediate Rash Verified 11/12/24 17:39 Antibiotics) [Sulfa (Sulfonamides)] verapamil [From Verelan] Allergy Intermediate Swelling Verified 10/08/24 09:44 VIJAY Inhibitors AdvReac Intermediate Cough Verified 10/08/24 09:44 Review of Systems Constitutional: Constitutional: Denies body ache(s), Denies chills, Denies fever(s), Denies frequent falls and Denies headache(s) ENT: Denies vertigo, Denies dizziness, Denies headache(s) and Denies neck pain Cardiovascular: Cardiovascular: Denies chest pain and Denies dyspnea Respiratory: Respiratory: Denies cough and Denies dyspnea Gastrointestinal: Gastrointestinal: Denies abdominal pain, Denies nausea and Denies vomiting Musculoskeletal: Musculoskeletal: Reports back pain, Denies arthralgias, Denies joint swelling, Denies limited range of motion, Denies neck pain, Denies numbness, Denies radiating pain into limb and Reports stiffness Integumentary/Breasts: Skin/Breast: Denies rash and Reports wounds Neurologic: Denies vertigo, Denies dizziness, Denies frequent falls, Denies headache(s) and Denies numbness Psychiatric: Psychiatric: Denies anxiety PMFSH Past Medical History Medical History COVID-19 vaccine administered Hx of thyroglossal duct cyst GERD (gastroesophageal reflux disease) COPD (chronic obstructive pulmonary disease) Asthma HTN (hypertension) Surgical History Hx of cataract extraction H/O colonoscopy Social History Social History (Updated 09/17/23 @ 11:12 by Marizol Brown CMA) Are you a primary vehicle care specialist to a significant other at home: No Do you presently have visiting nurse or other home services: No Patient Tobacco Use Status: Former Tobacco user Advance Directives: No Advance Directives Information Provided: Yes Physical Exam Vital Signs: Vital Signs: Last Vital Signs Temp 97.6 F 11/12/24 23:04 Pulse 62 11/12/24 23:04 Resp 16 11/12/24 23:04 BP 114/66 11/12/24 23:04 Pulse Ox 99 11/12/24 23:04 O2 Del Method Room Air 11/12/24 23:04 BMI result Body Mass Index 37.2 Const: General: healthy appearing, comfortable, no acute distress, alert and awake Nutritional Appearance: well nourished Orientation/consciousness: patient oriented x3 HEENT: Head: Yes normocephalic and Yes atraumatic Eyes: Eyelids: Yes eyelids normal Conjunctivae: conjunctivae normal Sclerae: sclerae normal Corneas: corneas normal Pupils: Equal, round and reactive pupils present EOM: EOMs intact bilaterally Neck: Other: No C-spine tenderness Neck: Yes full ROM Resp: Effort & Inspection: normal respiratory effort, able to speak in complete sentences and not labored Auscultation: clear to auscultation bilaterally Cardio: Rate: regular rate Rhythm: regular rhythm GI: Inspection: No distended Palpation (GI): Soft to palpation, not firm, nontender, no guarding and not rigid Skin: Other: 4 cm linear, full-thickness laceration t o the palm of the left hand extending from just proximal to the 4th MCP joint proximally. No evidence of neurovascular or tendinous injury. She has full range of motion with flexion- extension of all fingers of the left hand including the 4th finger. Neurovascular status is intact as well. Capillary refill under 2 seconds against. There is no significant deformity to the left hand or wrist. General skin exam: elasticity normal Neuro: General: patient oriented x3 Cranial nerves: Yes CN's II-XII intact bilaterally, Yes Equal, round and reactive pupils present and Yes Bilaterally intact EOM present Cognition (Neuro): normal cognition Course Course Course Narrative: This is a Rapid Medical Exam performed in triage by Elisa Nielsen PA-C. Full HPI, ROS and PE to be performed by primary ED provider. 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 Ambulatory with assistance since incident. tetanus UTD PE: no midline spinous ttp. +small lump to posterior scalp. +laceration to L palm needing repair Plan: Head/C-spine CT, XR, Wound repair Medications Administered Discontinued Medications Generic Name Dose Route Start Last Admin Trade Name Freq PRN Reason Stop Dose Admin Cyclobenzaprine HCl 5 mg 11/12/24 22:51 11/12/24 23:01 Cyclobenzaprine Hcl 5 Mg Tablet PO 11/12/24 22:52 5 mg ONCE ONE Administration Lidocaine/Epinephrine 10 ml 11/12/24 22:10 11/12/24 23:02 Lidocaine Hcl 1%/Epi 1:100,000 10 Ml Vial INFILTRATI 11/12/24 22:11 10 ml ONCE ONE Administration Procedures Laceration Laceration 1: Site: hand Side (If applicable): left Size (cm): 4 Description: linear Depth: simple, single layer Local Anesthetic: lidocaine 1% Amount of anesthesia used (mL): 3 Pre-repair: wound explored, irrigated extensively and deep structures intact Skin layer closed with: nylon Size (cm): 5-0 Number of sutures: 5 Technique: simple, interrupted Medical Decision Making Medical Decision Making MDM Narrative: Patient initially had a CT scan of the brain cervical spine ordered in triage due to the fall with positive head strike. She had a 5.3 mm ground-glass opacity in the left upper lung field. The patient is a former smoker with a history of COPD but has not been smoking for about 45 years. However given the finding a follow-up chest x-ray was ordered to evaluate the entire lung tinsley. There was no acute finding noted on the chest x-ray the patient denies any cough, shortness of breath or chest pain. I did discuss this finding with her and her daughter, I provided her a copy of her CT report and encouraged her to follow up with her primary doctor. She would likely benefit from an outpatient follow-up CT scan. See procedure note for laceration repair. We will treat her back pain with cyclobenzaprine in addition to [id number] ibuprofen and Tylenol Differential Diagnosis Differential Diagnoses: The differential diagnosis associated with the presentation includes Muscle strain Laceration Tendon injury less likely Intracranial hemorrhage Cervical fracture Lung mass Lung cancer COPD Radiology Impression Discussion of test interpretation with radiology: I have reviewed the radiologist's reading. Radiologist Impression: FINDINGS: Cortical sulci: There is diffuse prominence of the cortical sulci compatible with age-related atrophy. Ventricles: Normal for age Brain parenchyma: There is patchy lucency throughout the deep white matter indicating chronic microvascular leukomalacia. Extra axial spaces: Normal Posterior Fossa: Normal Extracranial soft tissues: Normal Additional abnormality: None IMPRESSION: Age-related atrophy with chronic microvascular leukomalacia. No hemorrhage, mass effect, or acute findings identified. This document has been electronically signed by: Lola Mosquera MD on 11/12/2024 20:11:21 Findings: Vertebral alignment is within normal limits. There is mild degenerative change. No acute fractures or dislocations. Visualized intracranial contents are unremarkable. Atherosclerosis calcification of the carotid bulbs. 5.3 mm ground-glass opacity of the left upper lobe. IMPRESSION: No acute findings. Ground-glass opacity of the left upper lobe. Further evaluation by CT chest as indicated. This document has been electronically signed by: Lola Mosquera MD on 11/12/2024 20:08:01 Findings: No consolidation or effusion. Normal size heart. No acute fracture. IMPRESSION: 1. No acute findings. This document has been electronically signed by: Audra Fajardo MD on 11/12/2024 22:21:29 Findings: Normal vertebral body alignment. No acute fractures or dislocation. Scoliosis. Multilevel degenerative changes of the lumbar spine with osteophytes and narrowing of the intervertebral disc space. IMPRESSION: No acute findings. This document has been electronically signed by: Lola Mosquera MD on 11/12/2024 19:17:55 Discharge Plan Discharge Clinical Impression: Laceration of hand, left, Acute back pain Patient Disposition: Home, Self-Care Instructions: Laceration (ED) Additional Instructions: The CT scan of your brain and cervical spine did not show any acute traumatic injuries The CT scan did show an incidental finding of a 5.3 mm opacity in the left upper lobe The follow-up chest x-ray did not show any abnormalities in your lungs Given your history of smoking, you should have a follow-up CT scan of your chest to evaluate this You had 5 sutures placed to your left hand These can be removed in 10-14 days Keep the area clean and dry. You may use topical antibiotic once daily The lumbar Spine did not show any fractures. Follow-up with your primary doctor, as you may need an outpatient MRI if your symptoms persist Use ibuprofen or Tylenol for pain You may use cyclobenzaprine as needed for muscle spasms This may make you drowsy, do not drink alcohol or drive after taking it Prescriptions: New cyclobenzaprine 5 mg tablet 5 mg PO TID PRN (Reason: muscle spasm) Qty: 12 0RF No Action omeprazole 20 mg capsule,delayed release(DR/EC) 1 cap PO DAILY montelukast 10 mg tablet 1 tab PO BEDTIME fluticasone propion-salmeterol [Advair Diskus] 250-50 mcg/dose Blister With Device 1 inh INHALATION BID albuterol sulfate [Ventolin HFA] 90 mcg/actuation Hfa Aerosol Inhaler 2 puff INHALATION Q4-6H PRN (Reason: Shortness Of Breath) fluticasone propionate [Flonase] 50 mcg/actuation [place],Suspension 1 spray INTRANASAL BID loratadine 10 mg Tablet 10 mg PO DAILY valsartan-hydrochlorothiazide 320-25 mg Tablet 1 tab PO DAILY amlodipine 2.5 mg tablet 2.5 mg PO DAILY Interventions: ED Discharge Assessment Last Done: 11/12/24 23:04 Discharge Date/Time: 11/12/24 23:05 Print Language: Wallisian
[2024-11-12 21:17] VITALS: BP 143/62; PULSE 62; RESP 16; TEMP 36.6; O2SAT 100
[2024-11-12 22:16] VITALS: BP 179/76; PULSE 57; RESP 16; TEMP 36.8; O2SAT 99
[2024-11-12 22:52] VITALS: BP 114/66; PULSE 62; RESP 16; O2SAT 99
[2024-11-12] MEDS: Cyclobenzaprine HCl 5 MG TABLET PO (23:01)
[2024-11-12] MEDS: Lidocaine HCl 1%/Epi 1:100,000 10 ML VIAL INFILTRATI (23:02)
[2024-11-12 23:04] VITALS: BP 114/66; PULSE 62; RESP 16; TEMP 36.4; O2SAT 99
== END 2024-11-12 23:05 | disposition home or self-care (01) ==
PROVIDERS: Emergency Provider Emergency Medicine Emergency Medical Services; PCP Internal Medicine
DX: S61.412A Laceration without foreign body of left hand, initial encounter (principal); W10.9XXA Fall (on) (from) unspecified stairs and steps, initial encounter; Y93.9 Activity, unspecified; Y92.9 Unspecified place or not applicable; Y99.9 Unspecified external cause status; Z79.899 Other long term (current) drug therapy; M54.50 Low back pain, unspecified
CPT/HCPCS: 12002; 70450; 71046; 72100; 72125; 99283; 99284; J2004

== ENCOUNTER → 2024-11-12 17:42 | Outpatient (BNV) | payer MEDICARE, SELFPAY | PROVIDERS: PCP Internal Medicine; Visit Provider Nuclear Medicine | DX: M54.2 Cervicalgia (principal); S09.90XA Unspecified injury of head, initial encounter; M54.50 Low back pain, unspecified | CPT/HCPCS: 70450; 72100; 72125 ==

== ENCOUNTER 2025-01-14 10:28 | Outpatient (AMB) | payer MEDICARE, SELFPAY ==
--- NOTE | 2025-01-14 10:32 | A.OFFVIS_ITS ---
Intake Visit Reasons: Bilateral knee pains Intake Note: Amber is a 79 year old female who presents with complaints of bilateral knee pains. She describes her pains as sharp in nature. Her pains have gotten worse over the last few weeks in spite of continued non operative treatments. She has tried Tylenol and anti-inflammatory medicines which gave her minimal relief. She has had cortisone injections which gave her fairly good relief. She wishes to hold off on surgery if at all possible. Allergies Sulfa (Sulfonamide Antibiotics) (Sulfa (Sulfonamides)) Allergy (Intermediate, Verified 01/14/25 10:35) Rash verapamil (From Verelan) Allergy (Intermediate, Verified 01/14/25 10:35) Swelling VIJAY Inhibitors Adverse Reaction (Intermediate, Verified 01/14/25 10:35) Cough Medication List - Last Reconciled 01/14/25 by Juan Tidwell MD albuterol sulfate 90 mcg/actuation (Ventolin HFA) 2 puffs inhalation Q4-6H PRN amlodipine 2.5 mg PO DAILY cyclobenzaprine 5 mg PO TID PRN fluticasone propion-salmeterol 250-50 mcg/dose (Advair Diskus) 1 inh inhalation BID fluticasone propionate 50 mcg/actuation 1 spray intranasal BID loratadine 10 mg PO DAILY montelukast 1 tab PO BEDTIME omeprazole 1 cap PO DAILY valsartan-hydrochlorothiazide 320-25 mg 1 tab PO DAILY PFSH Medical History COVID-19 vaccine administered Hx of thyroglossal duct cyst GERD (gastroesophageal reflux disease) COPD (chronic obstructive pulmonary disease) Asthma HTN (hypertension) Surgical History Hx of cataract extraction H/O colonoscopy Social History (Updated 09/17/23 @ 11:12 by Marizol Brown [facility]) Are you a primary customer care professional to a significant other at home: No Do you presently have visiting nurse or other home services: No Patient Tobacco Use Status: Former Tobacco user Physical Exam Const Other: Well-nourished well-developed very friendly female awake alert and oriented x3 in no acute distress Extrem Other: Bilateral lower extremity examination shows good capillary refill, no skin lesions noted, normal sensation light touch Bilateral knee examination shows minimal effusions, palpable crepitus with range of motion, pain with range of motion, no instability Office Procedures AMB Joint Injection/Aspiration Joint Injection/Aspiration Primary Site: right knee Prep: site was prepped using aseptic technique Injected: 40 mg of, DepoMedrol and 1% plain lidocaine Procedure: The patient tolerated the procedure well Coding 74995 - Large joint Procedure code (CPT) selection complete AMB Joint Injection/Aspiration Joint Injection/Aspiration Primary Site: left knee Prep: site was prepped using aseptic technique Injected: 40 mg of, DepoMedrol and 1% plain lidocaine Procedure: The patient tolerated the procedure well Coding 28961 - Large joint Procedure code (CPT) selection complete Results Reviewed Results Reviewed: X-rays of the patient's bilateral knees taken previously show joint space narrowing, subchondral sclerosis, no acute bony abnormalities Assessment & Plan Assessment & Plan (1) Arthritis of left knee: Code(s): M17.12 - Unilateral primary osteoarthritis, left knee Category: Medical (2) Arthritis of right knee: Code(s): M17.11 - Unilateral primary osteoarthritis, right knee Category: Medical Plan Ms. Tang presents with bilateral knee pains due to degenerative joint disease. The risks and benefits of bilateral knee cortisone injections were discussed at length with the patient. The patient wished to proceed. She tolerated the injections well. She will continue with her home exercise program. She will contact me prior to her follow-up appointment in 3 months should any questions or concerns arise. Feel free to call me at any time should questions regarding her orthopedic management arise. I spent 21 minutes in reviewing the patient's records and imaging studies, seeing the patient and documenting in the medical record. Orders: Orders AMB Joint Injection/Aspiration Today M17.12 - Unilateral primary osteoarthritis, left knee AMB Joint Injection/Aspiration Today M17.11 - Unilateral primary osteoarthritis, right knee Coding Level of Care Code Est Pt Level 3 (81208) Complex EM visit Add On G2211 Diagnoses Arthritis of left knee M17.12 Arthritis of right knee M17.11 CPT Codes Coding - 49088 Large joint: 31964 - Large joint ([id number]) Coding - 21241 Large joint: 15623 - Large joint ([id number])
--- OUTSIDE RECORDS SUMMARY | 2025-01-14 12:15 | XMS_ITS | Clinical Summary ---
Author Organization 175 [facility] Address [address] [place] [address] Phone Care Team Providers Care Residential Green Building Designer Name Role Phone Caren Martinez MD Primary Care Provider [phone] Allergies Active Allergy Reactions Criticality Noted Date [...] Diagnosed Date Allergic rhinitis 07/12/2017 Chronic obstructive pulmonar y disease ([facility] V24, [facility] V28) 02/28/2017 Encounters Date Type Department Care Team Description 01/08/2025 10:30 AM EDT Office Visit Pulmon[address] [place] [address] Bear Hough MD Chronic obstructive pulmonary disease, unspecified COPD type ([facility] V24, [facility] V28) (Primary Dx); Ground glass opacity present on imaging of lung from Last 3 Months Immunizations Name Administration [...] rh initis Chronic obstructive pulmonar y disease ([facility] V24, [facility] V28) 02/28/2017 DX:Chronic obstructive pulm onary disease ([facility]) Social History Tobacco Use Types Packs/Day Years Used Date Smoking Tobacco: Former Cigarettes Smokeless Tobacco: Never Tobacco Cessation:Counseling Given: Not Answered Alcohol Use Standard Drinks/Week Comments No 0 (1 standard drink = 0.6 oz pur e alcohol) Comments Unknown Sex and Gender Information Value Date Recorded Sex Assigned at Not on file Legal Sex Female 9:52 AM EST Gender Identity Not on file Sexual Orientation Not on file Obstetrics History Last Filed Vital Signs Vital Sign Reading Time Taken Comments Blood Pressure 126/64 01/08/2025 10:45 AM EDT Pulse 65 01/08/2025 10:45 AM EDT Temperature 36.2 C (97.2 F) 01/08/2025 10:45 AM EDT Respiratory Rate 20 01/08/2025 10:45 AM EDT Oxygen Saturation 95% 01/08/2025 10:45 AM EDT Inhaled Oxygen Concentration - - Weight 101 kg (221 lb 12.8 oz) 01/08/2025 10:45 AM EDT Height 162.6 cm (5' 4 ) 01/08/2025 10:45 AM EDT Body Mass Index 38.07 01/08/2025 10:45 AM EDT Plan of Treatment Upcoming Encounters Date Type Department Care Team (Late st Contact Info) Description 07/30/2025 11:45 AM EST Office Visit Pulmonolgy - [place] [address] [place] [address] Bear Hough MD [address] [place] [address] Health Maintenance Due Date Last Done Comments Depression Screening 07/01/2022 Falls Risk Assessment 07/01/2022 Hepatitis C Screening 07/01/2022 Medicare Annual Wellness Visit 07/01/2022 Osteoporosis Screening (Bone Density Screening) 07/01/2022 Social Influencers of Health Screening 07/01/2022 COVID-19 Vaccine ( season) 2024 04/09/2024, 05/02/2023, 05/16/2022, Additional history exists DTaP,Tdap,and Td Vaccines (2 - Td or Tdap) 10/28/2031 10/27/2021 Pneumococcal Vaccine: 50+ Years Completed 08/26/2019, 07/29/2018, 04/19/2016 RSV Immunization Adult Patients Completed 08/11/2023 Influenza Vaccine Completed 04/09/2024, , 05/16/2022, Additional history exists Zoster Vaccines Completed 10/13/2024, 07/24/2024 HIB Vaccines Aged Out No longer eligi [...] age to complete this topic Meningococcal B Vaccine Aged Out No l onger eligible based on patient's age to complete this topic RSV Immunization Patients Under 20 months Aged Out No longer eligible based on patient's age to complete this topic Varicella Vaccines Aged Out No longer eligible based on patient's age to complete this topic Insurance MEDICARE [facility] Care Teams Residential Green Building Designer Relationship Specialty Start Date End Date Caren Martinez MD [facility] PCP - General Internal Medicine 07/04/17
== END 2025-01-14 11:00 | disposition home or self-care (01) ==
LOC: HO.HOS 10:28
PROVIDERS: PCP Internal Medicine; Visit Provider Orthopaedic Surgery
DX: M17.0 Bilateral primary osteoarthritis of knee (principal)
CPT/HCPCS: 20610; 99213

== ENCOUNTER → 2025-01-14 10:28 | Outpatient (BNVA) | payer MEDICARE, SELFPAY | PROVIDERS: PCP Internal Medicine; Visit Provider Orthopaedic Surgery | DX: M17.0 Bilateral primary osteoarthritis of knee (principal) | CPT/HCPCS: 20610; 99212; J1010; J2003 ==

== ENCOUNTER 2025-02-02 09:38 | Outpatient (REF) | payer MEDICARE, SELFPAY ==
--- OUTSIDE RECORDS SUMMARY | 2025-02-02 10:08 | XMS_ITS | Clinical Summary ---
Author Organization [employer] Address [address] [place] [address] [address] [place] [address] Care Team Providers Care Aeronautical Research Engineer Name Role Phone Unavailable Primary Care Provider Unavailabl e Immunizations Immunization Administration Dates Next Due Influenza, seasonal, injectable, [...] 1965 Zoster Vaccines (1 of 2) 1997 COVID-19 Vaccine ( season) 2024 04/09/2024, 05/02/2023, 05/16/2022, Additional history exists Influenza Vaccine (#1) 2025 , 05/02/2023, 05/16/2022, Additional history exists DTaP/Tdap/Td Vaccines (2 - Td or Tdap) 10/28/2031 10/27/2021 Pneumococcal Vaccine: 50+ Years Completed 08/26/2019, 07/29/2018, 04/19/2016 RSV Patients and Patients Aged 60 years or older Completed 08/11/2023 HIB Vaccines Aged Out No longer eligi [...] age to complete this topic Insurance [place] [id number] [facility] MEDEX CARE
--- OUTSIDE RECORDS SUMMARY | 2025-02-02 10:08 | XMS_ITS | Patient Health Record ---
Author Organization [facility] mariama Josephine Address [address] [facility] [place] [address] Care Team Providers Care Coding Technician Name Role Phone Caren Martinez Primary Care Provider Valeriy Oro Unavailable [phone] Allergies Allergen (clinical drug ingredient) Drug/Non Drug Allergy documented on EMR Reaction Allergy Type Onset Date Status sulfa drugs (bactrim ) (uncoded) itching Allergy Active Reason For Referral No Information Medications Medication SIG (Take, Route, Frequency, Duration) Notes Start Date End Date Status Fluticasone Propionate 50 MCG/ACT 1 spray in each nostril Nasally Once a day; Duration: 30 day(s) 05/09/2019 Active Advair Diskus 500-50 MCG/DOSE Inhalation; Duration: 30 Act matt Montelukast Sodium 10 MG Oral; Duration: 30 Active Valsartan-hydroCHLOROthiazi de 320-25 MG Oral; Duration: 30 Active Montelukast Sodium A ctive ProAir HFA 108 (90 Base) MCG/ACT 2 puffs as needed Inhalation every 6 hrs Active Valsartan 320 MG Orally Act matt Loratadine Active Fluticasone Propionate HFA Active albuterol 320 Active Advair Diskus 500-50 MCG/DOSE 1 puff Inhalation Twice a day Active Albuterol Sulfate HFA 108 (90 Base) MCG/ACT Inhalation; Duration: 25 Active Ventolin HFA 108 (90 Base) MCG/ACT Inhalation; Duration: 16 Act matt Loratadine 10 MG 1 tablet Orally Once a day; Duration: 30 day(s) 05/09/2019 Active Social History Tobacco Use: Social History Observation Description Date Details (start date - stop date) Former Smoker NA - NA Tobacco Use/Smoking Question Answer Notes Are you a: former smoker Additional Findings: Tobacco Non-User Ex-heavy c igarette smoker (20-30/day) Alcohol Screen Question Answer Notes Did you have a drink containing alcohol in the p ast year? No Points 0 Interpretation Negative Problems Problem Type SNOMED Code ICD Code Onset Dates Problem Status W/U Status Risk Notes Problem Primary osteoarthritis , right ankle and foot (M19.071) Active confirmed Plan Of Treatment Pending Test Test Name Order Date X ray : Foot, right 3V 05/26/2019 Insurance Providers Payer Name Payer Address Payer Phone Subscriber Number Group Number Insured Name Patient Relationship to Insured Coverage Start Date Coverage End Date Medicare National Govt Svcs Inc [address] [facility] [address] [id number] Amber Tang Self - patient is the insured Medex Blue Shield [address] [place] [address] [phone] [id number] Amber Tang Self - patient is the insured Medical (General) History Medical History History ICD Code asthma Cataracts High blood pressure Measles Mumps Chicken pox Surgical History Surgery Date(Month/Year) Thyroid Surgery
--- OUTSIDE RECORDS SUMMARY | 2025-02-02 10:08 | XMS_ITS | Patient Health Record ---
Author Organization [facility] Address [address] [place] [address] Care Team Providers Care Command Post Superintendent Name Role Phone Noahstefan Caren Primary Care Provider Richar Quach Unavailable [phone] Allergies Allergen (clinical drug ingredient) Drug/Non Drug [...] Problem Screening for malignant neoplasm of colon (570746286) Encounter for screening for malignant neoplasm of colon (Z12.11) Active confirmed Problem Gastroesophageal reflux disease (470558056) GERD (gastroesopha geal reflux disease) (K21.9) Active confirmed Plan Of Treatment Future Test Test Name Order Date COLONOSCOPY 09/17/2020 Insurance Providers Payer Name Payer Address Payer Phone Subscriber Number Group Number Insured Name Patient Relationship to Insured Coverage Start Date Coverage End Date MEDICARE OF [place] [address] [place] [address] [id number] [employer]IN MED[employer] Self - patient is the insured MEDEX ATTN CLAIMS [address] [place] [phone] [id number] NAS[employer]IN MEDINA Self - patient is the insured Medical (General) History Medical History History ICD Code Hypertension COPD Negative screening colonoscopies in 2000 and 05/2010 Denies [place],DM,CVA,renal disease GERD Surgical History Surgery Date(Month/Year) Cyst near thyroid--removed cateracts both eyes 04/2020-
--- OUTSIDE RECORDS SUMMARY | 2025-02-02 10:08 | XMS_ITS | Clinical Summary ---
Author Organization 175 [facility] Address [address] [place] [address] Phone Care Team Providers Care Claims Specialist Name Role Phone Caren Martinez MD Primary Care Provider [phone] Allergies Active Allergy Reactions Criticality Noted Date [...] rhinitis 07/12/2017 Chronic obstructive pulmonar y disease ([facility] V24, [facility] V28) 02/28/2017 Encounters Date Type Department Care Team Description 01/08/2025 10:30 AM EDT Office Visit Pulmon[address] [place] [address] Bear Hough MD Chronic obstructive pulmonary disease, unspecified COPD type ([facility] V24, [facility] V28) (Primary Dx); Ground glass opacity present [...] rh initis Chronic obstructive pulmonar y disease ([facility] V24, [facility] V28) 02/28/2017 DX:Chronic obstructive pulm onary disease ([facility]) Social History Tobacco Use Types Packs/Day Years [...] 11:45 AM EST Office Visit Pulmonolgy - [place] [address] [place] [address] Bear Hough MD [address] [place] [address] Health Maintenance Due Date Last Done Comments Depression Screening 07/01/2022 Falls Risk Assessment 07/01/2022 Hepatitis C Screening 07/01/2022 Medicare Annual Wellness Visit 07/01/2022 Osteoporosis Screening (Bone Density Screening) 07/01/2022 Social Influencers of Health Screening 07/01/2022 COVID-19 Vaccine ( season) 2024 04/09/2024, 05/02/2023, 05/16/2022, Additional history exists Influenza Vaccine (#1) 2025 , 05/02/2023, 05/16/2022, Additional history exists DTaP,Tdap,and Td Vaccines (2 - Td or Tdap) 10/28/2031 10/27/2021 Pneumococcal Vaccine: 50+ Years Completed 08/26/2019, 07/29/2018, 04/19/2016 RSV Immunization Adult Patients Completed 08/11/2023 Zoster Vaccines Completed 10/13/2024, 07/24/2024 HIB Vaccines [...] age to complete this topic Insurance MEDICARE [facility] Care Teams Claims Specialist Relationship Specialty Start Date End Date Caren Martinez MD [facility] [address] PCP - General Internal Medicine 07/04/17
[2025-02-02 13:43] LABS: Alanine Aminotransferase 19 U/L (0-31); Albumin Level 3.7 g/dL (3.5-5.0); Alkaline Phosphatase 82 U/L (39-117); Anion Gap 11 (12-20); Aspartate Amino Transferase 17 U/L (5-31); Blood Urea Nitrogen 25 mg/dL (9-16); Calcium 8.8 mg/dL (8.4-10.2); Carbon Dioxide 28 mmol/L (22-29); Chloride 107 mmol/L (96-108); Estimated Glomerular Filt Rate 52; Potassium 3.8 mmol/L (3.3-5.1); Sodium 142 mmol/L (135-145); Total Protein 6.4 g/dL (6.5-8.0)
== END 2025-02-02 09:39 | disposition home or self-care (01) ==
LOC: HO.10HDL 09:38
PROVIDERS: Visit Provider Internal Medicine
DX: E78.00 Pure hypercholesterolemia, unspecified (principal); I10 Essential (primary) hypertension; J44.1 Chronic obstructive pulmonary disease with (acute) exacerbation; M54.50 Low back pain, unspecified
CPT/HCPCS: 36415; 80053

== ENCOUNTER 2025-02-16 12:39 | Outpatient (REF) | payer MEDICARE, SELFPAY ==
--- OUTSIDE RECORDS SUMMARY | 2025-02-16 13:27 | XMS_ITS | Patient Health Record ---
Author Organization [facility] amriama Batson Address [address] [place] [address] Care Team Providers Care Cycle Analyst Name Role Phone Caren Martinez Primary Care Provider Valeriy Oro Unavailable [phone] Allergies Allergen (clinical drug ingredient) Drug/Non Drug [...] Problem Status W/U Status Risk Notes Problem Localized, primary osteoarthritis of the ankle and/or foot (273504559) Primary osteoarthrit is, right ankle and foot (M19.071) Active confirmed Plan Of Treatment Pending Test Test Name Order Date X ray : Foot, right 3V 05/26/2019 Insurance Providers Payer Name Payer Address Payer Phone Subscriber Number Group Number Insured Name Patient Relationship to Insured Coverage Start Date Coverage End Date Medicare National Govt Svcs Inc [address] [facility] [place] [address] [id number] Amber Tang Self - patient is the insured Medex Blue Shield [address] [place] [address] [id number] Amber Tang Self - patient is the insured Medical (General) History Medical History History ICD Code asthma Cataracts High blood pressure Measles Mumps Chicken pox Surgical History Surgery Date(Month/Year) Thyroid Surgery
--- OUTSIDE RECORDS SUMMARY | 2025-02-16 13:27 | XMS_ITS | Clinical Summary ---
Author Organization [employer] Address [address] [place] [address] [address] [place] [address] Care Team Providers Care Client Service Representative Name Role Phone Unavailable Primary Care Provider [...] age to complete this topic Insurance MEDICARE [facility] MEDEX CARE
--- OUTSIDE RECORDS SUMMARY | 2025-02-16 13:27 | XMS_ITS | Clinical Summary ---
Author Organization 175 [facility] Address [address] [place] [address] Phone Care Team Providers Care Metallurgist Helper Name Role Phone Caren Martinez MD Primary Care Provider [phone] Allergies Active Allergy Reactions Criticality Noted Date [...] rhinitis 07/12/2017 Chronic obstructive pulmonar y disease ([facility] V24, [facility] V28) 02/28/2017 Encounters Date Type Department Care Team Description 01/08/2025 10:30 AM EDT Office Visit Pulmon[address] [place] [address] Bear Hough MD Chronic obstructive pulmonary disease, unspecified COPD type ([facility] V24, [facility] V28) (Primary Dx); Ground glass opacity present [...] rh initis Chronic obstructive pulmonar y disease ([facility] V24, [facility] V28) 02/28/2017 DX:Chronic obstructive pulm onary disease ([facility]) Social History Tobacco Use Types Packs/Day [...] 11:45 AM EST Office Visit Pulmonolgy - [place] [address] [place] [address] Bear Hough MD [address] [place] [address] Health Maintenance Due Date Last Done Comments Falls Risk Assessment 07/01/2022 Hepatitis C Screening 07/01/2022 Medicare Annual Wellness Visit 07/01/2022 Osteoporosis Screening (Bone Density Screening) 07/01/2022 Social Influencers of Health Screening 07/01/2022 Depression Screening 07/23/2024 COVID-19 Vaccine ( season) 2024 04/09/2024, 05/02/2023, [...] age to complete this topic Insurance MEDICARE [facility] Care Teams Metallurgist Helper Relationship Specialty Start Date End Date Caren Martinez MD [facility] [address] PCP - General Internal Medicine 07/04/17
--- OUTSIDE RECORDS SUMMARY | 2025-02-16 13:27 | XMS_ITS | Patient Health Record ---
Author Organization [facility] Address [address] [place] [address] Care Team Providers Care Call Center Support Consultant Name Role Phone Noahstefan Caren Primary Care Provider Richar Quach Unavailable [phone] Allergies Allergen (clinical drug ingredient) Drug/Non Drug [...] Problem Screening for malignant neoplasm of colon (357988010) Encounter for screening for malignant neoplasm of colon (Z12.11) Active confirmed Problem Gastroesophageal reflux disease (085553907) GERD (gastroesopha geal reflux disease) (K21.9) Active confirmed Plan Of Treatment Future Test Test Name Order Date COLONOSCOPY 09/17/2020 Insurance Providers Payer Name Payer Address Payer Phone Subscriber Number Group Number Insured Name Patient Relationship to Insured Coverage Start Date Coverage End Date MEDICARE OF [place] [address] [place] [id number] NAS[employer]NI MEDINA Self - patient is the insured MEDEX ATTN CLAIMS [address] [place] [address] [phone] [id number] NASRIN MEDINA Self - patient is the insured Medical (General) History Medical History History ICD Code Hypertension COPD Negative screening colonoscopies in 2000 and 05/2010 Denies [place],DM,CVA,renal disease GERD Surgical History Surgery Date(Month/Year) Cyst near thyroid--removed cateracts both eyes 04/2020-
== END 2025-02-16 12:40 | disposition home or self-care (01) ==
LOC: HO.MAMMO 12:39
PROVIDERS: PCP Internal Medicine; Visit Provider Internal Medicine
DX: Z12.31 Encounter for screening mammogram for malignant neoplasm of breast (principal)
CPT/HCPCS: 77063; 77067

== ENCOUNTER → 2025-02-16 12:45 | Outpatient (BNV) | payer MEDICARE, SELFPAY | PROVIDERS: PCP Internal Medicine; Visit Provider Internal Medicine | DX: Z12.31 Encounter for screening mammogram for malignant neoplasm of breast (principal) | CPT/HCPCS: 77063; 77067 ==

== ENCOUNTER 2025-04-16 10:27 | Outpatient (AMB) | payer MEDICARE, SELFPAY ==
--- NOTE | 2025-04-16 10:51 | A.OFFVIS_ITS ---
Intake Visit Reasons: Bilateral knee pain Intake Note: Amber is a 80 year old woman who presents with complaints of bilateral knee pains. She describes her pains as sharp in nature. Her pains have gotten worse over the last few months in spite of continued non operative treatments. She has had cortisone injections in the past which gave her fairly good relief. She has also tried Tylenol, anti-inflammatory medicines and physical therapy exercises which gave her minimal relief. She wishes to hold off on total knee replacement surgery for now. Allergies Sulfa (Sulfonamide Antibiotics) (Sulfa (Sulfonamides)) Allergy (Intermediate, Verified 04/16/25 10:54) Rash verapamil (From Verelan) Allergy (Intermediate, Verified 04/16/25 10:54) Swelling VIJAY Inhibitors Adverse Reaction (Intermediate, Verified 04/16/25 10:54) Cough Medication List - Last Reconciled 04/16/25 by Juan Tidwell MD albuterol sulfate 90 mcg/actuation (Ventolin HFA) 2 puffs inhalation Q4-6H PRN amlodipine 2.5 mg PO DAILY cyclobenzaprine 5 mg PO TID PRN fluticasone propion-salmeterol 250-50 mcg/dose (Advair Diskus) 1 inh inhalation BID fluticasone propionate 50 mcg/actuation 1 spray intranasal BID loratadine 10 mg PO DAILY montelukast 1 tab PO BEDTIME omeprazole 1 cap PO DAILY valsartan-hydrochlorothiazide 320-25 mg 1 tab PO DAILY PFSH Medical History COVID-19 vaccine administered Hx of thyroglossal duct cyst GERD (gastroesophageal reflux disease) COPD (chronic obstructive pulmonary disease) Asthma HTN (hypertension) Surgical History Hx of cataract extraction H/O colonoscopy Social History Are you a primary wound care technician to a significant other at home: No Do you presently have visiting nurse or other home services: No Patient Tobacco Use Status: Former Tobacco user Physical Exam Const Other: Well-nourished well-developed very friendly female awake alert and oriented x3 in no acute distress Extrem Other: Bilateral knee examination shows minimal effusions, palpable crepitus with range of motion, pain with range of motion, no instability Office Procedures AMB Joint Injection/Aspiration Joint Injection/Aspiration Primary Site: right knee Prep: site was prepped using aseptic technique Injected: 40 mg of, DepoMedrol and 1% plain lidocaine Procedure: The patient tolerated the procedure well Coding 65838 - Large joint Procedure code (CPT) selection complete AMB Joint Injection/Aspiration Joint Injection/Aspiration Primary Site: left knee Prep: site was prepped using aseptic technique Injected: 40 mg of, DepoMedrol and 1% plain lidocaine Procedure: The patient tolerated the procedure well Coding 93081 - Large joint Procedure code (CPT) selection complete Results Reviewed Results Reviewed: X-rays of the patient's bilateral knees taken previously show joint space narrowing, subchondral sclerosis, no acute bony abnormalities Assessment & Plan Assessment & Plan (1) Arthritis of left knee: Code(s): M17.12 - Unilateral primary osteoarthritis, left knee Category: Medical (2) Arthritis of right knee: Code(s): M17.11 - Unilateral primary osteoarthritis, right knee Category: Medical (3) Pain in both knees: Code(s): M25.561 - Pain in right knee; M25.562 - Pain in left knee Plan Ms. Tang presents with bilateral knee pains due to degenerative joint disease. The risks and benefits of bilateral knee cortisone injections were discussed at length with the patient. The patient wished to proceed. She tolerated the injections well. She will continue with her home exercise program. She will contact me prior to her follow-up appointment in 3 months should any questions or concerns arise. Feel free to call me at any time should questions regarding her orthopedic management arise. I spent 20 minutes in reviewing the patient's records and imaging studies, seeing the patient and documenting in the medical record. Orders: Orders AMB Joint Injection/Aspiration 04/16/25 M17.12 - Unilateral primary osteoarthritis, left knee AMB Joint Injection/Aspiration 04/16/25 M17.11 - Unilateral primary osteoarthritis, right knee Coding Level of Care Code Est Pt Level 3 (55809) Complex EM visit Add On G2211 Diagnoses Arthritis of left knee M17.12 Arthritis of right knee M17.11 Pain in both knees M25.561; M25.562 CPT Codes Coding - 42599 Large joint: 86078 - Large joint ([id number]) Coding - 97578 Large joint: 88709 - Large joint ([id number])
--- OUTSIDE RECORDS SUMMARY | 2025-04-16 13:15 | XMS_ITS | Clinical Summary ---
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
--- OUTSIDE RECORDS SUMMARY | 2025-04-16 13:15 | XMS_ITS | Patient Health Record ---
Author Organization [facility] Address [address] [place] [address] Care Team Providers Care Design Architect Name Role Phone Noahstefan Caren Primary Care Provider Richar Quach Unavailable [phone] Allergies Allergen (clinical drug ingredient) Drug/Non Drug [...] Problem Screening for malignant neoplasm of colon (886704355) Encounter for screening for malignant neoplasm of colon (Z12.11) Active confirmed Problem Gastroesophageal reflux disease (298166812) GERD (gastroesopha geal reflux disease) (K21.9) Active confirmed Plan Of Treatment Future Test Test Name Order Date COLONOSCOPY 09/17/2020 Insurance Providers Payer Name Payer Address Payer Phone Subscriber Number Group Number Insured Name Patient Relationship to Insured Coverage Start Date Coverage End Date MEDICARE OF [place] [address] [place] [id number] [employer] Self - patient is the insured [employer] CLAIMS [address] [place] [address] [phone] [id number] [employer]IN MEDINA Self - patient is the insured Medical (General) History Medical History History ICD Code Hypertension COPD Negative screening colonoscopies in 2000 and 05/2010 Denies OR,DM,CVA,renal disease GERD Surgical History Surgery Date(Month/Year) Cyst near thyroid--removed cateracts both eyes 04/2020-
--- OUTSIDE RECORDS SUMMARY | 2025-04-16 13:15 | XMS_ITS | Clinical Summary ---
Author Organization [facility] Address [address] [place] [address] Phone Care Team Providers Care Tile Trimmer Name Role Phone Caren Martinez MD Primary Care Provider [phone] Allergies Active Allergy Reactions Criticality Noted Date [...] rhinitis 07/12/2017 Chronic obstructive pulmonar y disease ([facility] V24, [facility] V28) 02/28/2017 Immunizations Name Administration Dates Next Due Pfizer SARS-CoV-2 COVID-19, mRNA, LNP-S, preservative free 05/04/2021,10/14/2020,09/23/2020 Surgical History Surgery Date Site/Laterality Comments OTHER SURGICAL HISTORY 1999 PROCEDURE: HISTORY OTHER; COMMENT: Thyroid cyst removal COLONOSCOPY 2010 PROCEDURE: HISTORICAL COLONOSCOPY; COMMENT: Per pt. No path report received. Medical History Medical History Date Comments Allergic rhinitis 07/12/2017 DX:Allergic rh initis Chronic obstructive pulmonar y disease ([facility] V24, [facility] V28) 02/28/2017 DX:Chronic obstructive pulm onary disease ([facility]) Social History Tobacco Use Types [...] Description 07/30/2025 11:45 AM EST Office Visit Pulmonology - [place] [address] [place] [id number] Bear Hough MD [address] [facility] [address] [place] [address] Health Maintenance Due Date Last Done Comments Falls Risk Assessment 07/01/2022 Hepatitis C Screening 07/01/2022 Medicare Annual Wellness Visit 07/01/2022 Osteoporosis Screening (Bone Density Screening) 07/01/2022 Social Influencers of Health Screening 07/01/2022 Depression Screening 07/23/2024 COVID-19 Vaccine ( season) 2025 04/09/2024, 05/02/2023, [...] age to complete this topic Insurance MEDICARE [facility] Care Teams Tile Trimmer Relationship Specialty Start Date End Date Caren Martinez MD [address] PCP - General Internal Medicine 07/04/17
--- OUTSIDE RECORDS SUMMARY | 2025-04-16 13:16 | XMS_ITS | Patient Health Record ---
Author Organization [facility] [place] Address [address] [place] [address] Care Team Providers Care Concrete Float Maker Name Role Phone Caren Martinez Primary Care Provider Valeriy Oro Unavailable [phone] Allergies Allergen (clinical drug ingredient) Drug/Non Drug [...] primary osteoarthritis of the ankle and/or foot (672136327) Primary osteoarthrit is, right ankle and foot (M19.071) Active confirmed Plan Of Treatment Pending Test Test Name Order Date X ray : Foot, right 3V 05/26/2019 Insurance Providers Payer Name Payer Address Payer Phone Subscriber Number Group Number Insured Name Patient Relationship to Insured Coverage Start Date Coverage End Date Medicare National [employer] [address] [place] [address] [id number] Amber Tang Self - patient is the insured [employer] [address] [place] [address] [id number] Amber Tang Self - patient is the insured Medical (General) History Medical History History ICD Code asthma Cataracts High blood pressure Measles Mumps Chicken pox Surgical History Surgery Date(Month/Year) Thyroid Surgery
== END 2025-04-16 11:22 | disposition home or self-care (01) ==
LOC: HO.HOS 10:28
PROVIDERS: PCP Internal Medicine; Visit Provider Orthopaedic Surgery
DX: M17.0 Bilateral primary osteoarthritis of knee (principal)
CPT/HCPCS: 20610; 99213

== ENCOUNTER → 2025-04-16 10:27 | Outpatient (BNVA) | payer MEDICARE, SELFPAY | PROVIDERS: PCP Internal Medicine; Visit Provider Orthopaedic Surgery | DX: M17.0 Bilateral primary osteoarthritis of knee (principal); M25.561 Pain in right knee; M25.562 Pain in left knee | CPT/HCPCS: 20610; 99212; J1010; J2003 ==